=== PATIENT | male | born 1945 | race Caucasian/White ===

== ENCOUNTER → 2017-07-05 14:12 | Outpatient (CLI) | payer MEDICARE, OTHER | END | disposition home or self-care (01) | LOC: D.LAB 14:12 | DX: N40.0 Benign prostatic hyperplasia without lower urinary tract symptoms (principal); Z12.5 Encounter for screening for malignant neoplasm of prostate ==

== ENCOUNTER → 2017-09-19 12:52 | Outpatient (CLI) | payer MEDICARE, OTHER | END | disposition home or self-care (01) | LOC: D.LABREF 12:52 | DX: T84.52XA Infection and inflammatory reaction due to internal left hip prosthesis, initial encounter (principal) ==

== ENCOUNTER → 2017-09-22 13:40 | Outpatient (CLI) | payer MEDICARE, OTHER ==
[2017-09-22 15:44] LABS: CALC OSMOLALITY 283 mosm/kg (275-300); CALCIUM 8.7 mg/dL (8.5-10.1); CARBON DIOXIDE 26.4 mmol/L (21.0-32.0); CHLORIDE - SERUM 103 mmol/L (98-107); GLUCOSE 105 mg/dL (74-106); POTASSIUM - SERUM 3.7 mmol/L (3.5-5.1); SODIUM 143 mmol/L (136-145); UREA NITROGEN 9 mg/dL (7-18); VANCOMYCIN - TROUGH 23.3 ug/mL (10.0-20.0); eGFR NON AFRICAN AMERICAN 78 mL/min (90-120)
== END | disposition home or self-care (01) ==
LOC: D.LABREF 13:40
PROVIDERS: Orthopaedic Surgery
DX: T84.52XA Infection and inflammatory reaction due to internal left hip prosthesis, initial encounter (principal)

== ENCOUNTER → 2017-09-26 11:16 | Outpatient (CLI) | payer MEDICARE, OTHER | END | disposition home or self-care (01) | LOC: D.LABREF 11:16 | DX: T84.52XA Infection and inflammatory reaction due to internal left hip prosthesis, initial encounter (principal) ==

== ENCOUNTER → 2017-09-30 10:39 | Outpatient (CLI) | payer MEDICARE, OTHER ==
[2017-09-30 11:19] LABS: ANION GAP 11.9 mmol/L (8-16); CALCIUM 8.7 mg/dL (8.5-10.1); CARBON DIOXIDE 29.7 mmol/L (21.0-32.0); CREATININE - SERUM 1.1 mg/dL (0.6-1.3); POTASSIUM - SERUM 4.6 mmol/L (3.5-5.1); VANCOMYCIN - TROUGH 18.4 ug/mL (10.0-20.0)
== END | disposition home or self-care (01) ==
LOC: D.LABREF 10:39
PROVIDERS: Orthopaedic Surgery
DX: T84.54XA Infection and inflammatory reaction due to internal left knee prosthesis, initial encounter (principal); Z51.81 Encounter for therapeutic drug level monitoring; Z79.2 Long term (current) use of antibiotics; I25.10 Atherosclerotic heart disease of native coronary artery without angina pectoris

== ENCOUNTER → 2017-10-03 13:18 | Outpatient (CLI) | payer MEDICARE, OTHER ==
[2017-10-03 20:03] LABS: UREA NITROGEN 11 mg/dL (7-18)
[2017-10-03 20:05] LABS: CALC OSMOLALITY 281 mosm/kg (275-300); CALCIUM 8.6 mg/dL (8.5-10.1); CARBON DIOXIDE 29.2 mmol/L (21.0-32.0); CHLORIDE - SERUM 104 mmol/L (98-107); GLUCOSE 95 mg/dL (74-106); POTASSIUM - SERUM 4.5 mmol/L (3.5-5.1); SODIUM 142 mmol/L (136-145); VANCOMYCIN - TROUGH 18.9 ug/mL (10.0-20.0); eGFR NON AFRICAN AMERICAN 78 mL/min (90-120)
== END | disposition home or self-care (01) ==
LOC: D.LABREF 13:18
PROVIDERS: Orthopaedic Surgery
DX: T84.54XA Infection and inflammatory reaction due to internal left knee prosthesis, initial encounter (principal)

== ENCOUNTER → 2017-10-10 12:46 | Outpatient (CLI) | payer MEDICARE, OTHER ==
[2017-10-10 15:26] LABS: CALC OSMOLALITY 278 mosm/kg (275-300); CALCIUM 8.7 mg/dL (8.5-10.1); CARBON DIOXIDE 31.4 mmol/L (21.0-32.0); CHLORIDE - SERUM 102 mmol/L (98-107); CREATININE - SERUM 0.9 mg/dL (0.6-1.3); GLUCOSE 107 mg/dL (74-106); POTASSIUM - SERUM 4.6 mmol/L (3.5-5.1); SODIUM 139 mmol/L (136-145); UREA NITROGEN 14 mg/dL (7-18); VANCOMYCIN - TROUGH 18.5 ug/mL (10.0-20.0); eGFR NON AFRICAN AMERICAN 88 mL/min (90-120)
== END | disposition home or self-care (01) ==
LOC: D.LABREF 12:46
PROVIDERS: Orthopaedic Surgery
DX: T84.54XA Infection and inflammatory reaction due to internal left knee prosthesis, initial encounter (principal)

== ENCOUNTER → 2017-10-17 12:21 | Outpatient (CLI) | payer MEDICARE, OTHER ==
[2017-10-17 12:45] LABS: CALC OSMOLALITY 286 mosm/kg (275-300); CALCIUM 8.5 mg/dL (8.5-10.1); CARBON DIOXIDE 31.6 mmol/L (21.0-32.0); CHLORIDE - SERUM 106 mmol/L (98-107); CREATININE - SERUM 0.9 mg/dL (0.6-1.3); GLUCOSE 111 mg/dL (74-106); POTASSIUM - SERUM 4.8 mmol/L (3.5-5.1); SODIUM 143 mmol/L (136-145); UREA NITROGEN 14 mg/dL (7-18); VANCOMYCIN - TROUGH 17.3 ug/mL (10.0-20.0); eGFR NON AFRICAN AMERICAN 88 mL/min (90-120)
== END | disposition home or self-care (01) ==
LOC: D.LABREF 12:21
PROVIDERS: Orthopaedic Surgery
DX: T84.54XA Infection and inflammatory reaction due to internal left knee prosthesis, initial encounter (principal)

== ENCOUNTER → 2017-10-24 13:19 | Outpatient (CLI) | payer MEDICARE, OTHER ==
[2017-10-24 19:52] LABS: ANION GAP 9.7 mmol/L (8-16); CALCIUM 8.9 mg/dL (8.5-10.1); CARBON DIOXIDE 31.3 mmol/L (21.0-32.0); CREATININE - SERUM 1.2 mg/dL (0.6-1.3); VANCOMYCIN - TROUGH 18.4 ug/mL (10.0-20.0)
== END | disposition home or self-care (01) ==
LOC: D.LABREF 13:19
PROVIDERS: Orthopaedic Surgery
DX: T84.54XA Infection and inflammatory reaction due to internal left knee prosthesis, initial encounter (principal)

== ENCOUNTER → 2018-10-23 11:37 | Outpatient (CLI) | payer MEDICARE, OTHER | END | disposition home or self-care (01) | LOC: D.LABREF 11:37 → D.LDO 11:37 | DX: M00.9 Pyogenic arthritis, unspecified (principal); Z51.81 Encounter for therapeutic drug level monitoring; Z79.2 Long term (current) use of antibiotics ==

== ENCOUNTER → 2018-10-30 17:30 | Outpatient (CLI) | payer MEDICARE, OTHER ==
[2018-10-30 18:37] LABS: BASOPHILS 0.6 % (0-2); EOSINOPHILS 5.3 % (0-7); HEMOGLOBIN 11.1 g/dL (13.5-17.5); IMMATURE GRANULOCYTES 0.4 % (0-5); LYMPHOCYTES 35.5 % (15-50); MCH 26.1 pg (26.0-34.0); MCV 86.9 fL (80.0-100.0); MEAN PLATELET VOLUME 9.8 fL (7.4-10.4); MONOCYTES 10.2 % (2-11); PLATELET COUNT 232 10x3/uL (130-400); RBC 4.26 10x6/uL (4.20-6.10); WBC 5.3 10x3/uL (4.8-10.8)
[2018-10-30 19:25] LABS: ALBUMIN 2.9 g/dL (3.4-5.0); ALKALINE PHOSPHATASE 100 U/L (46-116); ALT (SGPT) 12 U/L (10-68); BILIRUBIN - TOTAL 0.21 mg/dL (0.2-1.3); CALC OSMOLALITY 279 mosm/kg (275-300); CALCIUM 8.2 mg/dL (8.5-10.1); CARBON DIOXIDE 33.7 mmol/L (21.0-32.0); CHLORIDE - SERUM 99 mmol/L (98-107); GLUCOSE 138 mg/dL (74-106); POTASSIUM - SERUM 4.1 mmol/L (3.5-5.1); SODIUM 139 mmol/L (136-145); UREA NITROGEN 13 mg/dL (7-18); eGFR NON AFRICAN AMERICAN 78 mL/min (90-120)
[2018-10-30 20:51] LABS: ERYTHROCYTE SEDIMENTATION RATE 5 mm/hr (0-20)
== END | disposition home or self-care (01) ==
LOC: D.LABREF 17:30
PROVIDERS: Orthopaedic Surgery
DX: T84.50XA Infection and inflammatory reaction due to unspecified internal joint prosthesis, initial encounter (principal)

== ENCOUNTER → 2018-11-06 14:04 | Outpatient (CLI) | payer MEDICARE, OTHER ==
[2018-11-06 15:07] LABS: BASOPHILS 0.3 % (0-2); EOSINOPHILS 1.2 % (0-7); HEMOGLOBIN 11.9 g/dL (13.5-17.5); IMMATURE GRANULOCYTES 0.2 % (0-5); LYMPHOCYTES 28.4 % (15-50); MCH 26.7 pg (26.0-34.0); MCHC 31.3 g/dL (31.0-37.0); MCV 85.2 fL (80.0-100.0); MEAN PLATELET VOLUME 9.8 fL (7.4-10.4); MONOCYTES 13.4 % (2-11); NEUTROPHILS 56.5 % (40-80); PLATELET COUNT 190 10x3/uL (130-400); RBC 4.46 10x6/uL (4.20-6.10); RDW 14.8 % (11.5-14.5); WBC 6.6 10x3/uL (4.8-10.8)
[2018-11-06 15:35] LABS: ALBUMIN 3.2 g/dL (3.4-5.0); ALKALINE PHOSPHATASE 112 U/L (46-116); ALT (SGPT) 10 U/L (10-68); BILIRUBIN - TOTAL 0.28 mg/dL (0.2-1.3); CALC OSMOLALITY 277 mosm/kg (275-300); CALCIUM 8.7 mg/dL (8.5-10.1); CARBON DIOXIDE 29.2 mmol/L (21.0-32.0); CHLORIDE - SERUM 100 mmol/L (98-107); GLUCOSE 108 mg/dL (74-106); POTASSIUM - SERUM 4.5 mmol/L (3.5-5.1); PROTEIN - SERUM 6.5 g/dL (6.4-8.2); SODIUM 138 mmol/L (136-145); UREA NITROGEN 14 mg/dL (7-18); eGFR NON AFRICAN AMERICAN 78 mL/min (90-120)
[2018-11-06 16:28] LABS: ERYTHROCYTE SEDIMENTATION RATE 9 mm/hr (0-20)
== END | disposition home or self-care (01) ==
LOC: D.LABREF 14:04
PROVIDERS: Orthopaedic Surgery
DX: M00.9 Pyogenic arthritis, unspecified (principal); Z51.81 Encounter for therapeutic drug level monitoring; Z79.2 Long term (current) use of antibiotics; I25.10 Atherosclerotic heart disease of native coronary artery without angina pectoris

== ENCOUNTER → 2018-11-13 14:31 | Outpatient (CLI) | payer MEDICARE, OTHER ==
[2018-11-13 14:53] LABS: BASOPHILS 0.6 % (0-2); EOSINOPHILS 3.9 % (0-7); HEMATOCRIT 39.4 % (42.0-54.0); IMMATURE GRANULOCYTES 0.2 % (0-5); LYMPHOCYTES 42.8 % (15-50); MCH 26.3 pg (26.0-34.0); MCHC 30.5 g/dL (31.0-37.0); MCV 86.2 fL (80.0-100.0); MEAN PLATELET VOLUME 10.4 fL (7.4-10.4); MONOCYTES 13.7 % (2-11); NEUTROPHILS 38.8 % (40-80); PLATELET COUNT 177 10x3/uL (130-400); RBC 4.57 10x6/uL (4.20-6.10); RDW 15.2 % (11.5-14.5); WBC 4.9 10x3/uL (4.8-10.8)
[2018-11-13 15:08] LABS: ALBUMIN 3.3 g/dL (3.4-5.0); ALKALINE PHOSPHATASE 103 U/L (46-116); ALT (SGPT) 15 U/L (10-68); BILIRUBIN - TOTAL 0.22 mg/dL (0.2-1.3); CALC OSMOLALITY 281 mosm/kg (275-300); CALCIUM 8.5 mg/dL (8.5-10.1); CHLORIDE - SERUM 101 mmol/L (98-107); CREATININE - SERUM 0.9 mg/dL (0.6-1.3); GLUCOSE 96 mg/dL (74-106); POTASSIUM - SERUM 5.2 mmol/L (3.5-5.1); PROTEIN - SERUM 6.4 g/dL (6.4-8.2); SODIUM 141 mmol/L (136-145); UREA NITROGEN 14 mg/dL (7-18); eGFR NON AFRICAN AMERICAN 88 mL/min (90-120)
[2018-11-13 15:52] LABS: ERYTHROCYTE SEDIMENTATION RATE 1 mm/hr (0-20)
== END | disposition home or self-care (01) ==
LOC: D.LABREF 14:31
PROVIDERS: Orthopaedic Surgery
DX: T84.84XD Pain due to internal orthopedic prosthetic devices, implants and grafts, subsequent encounter (principal); I25.10 Atherosclerotic heart disease of native coronary artery without angina pectoris; Z51.81 Encounter for therapeutic drug level monitoring; Z79.2 Long term (current) use of antibiotics

== ENCOUNTER → 2018-11-20 18:36 | Outpatient (CLI) | payer MEDICARE, OTHER ==
[2018-11-20 19:57] LABS: HEMATOCRIT 36.9 % (42.0-54.0); HEMOGLOBIN 11.5 g/dL (13.5-17.5); MCH 26.4 pg (26.0-34.0); MCHC 31.2 g/dL (31.0-37.0); MCV 84.8 fL (80.0-100.0); MEAN PLATELET VOLUME 10.2 fL (7.4-10.4); PLATELET COUNT 182 10x3/uL (130-400); RBC 4.35 10x6/uL (4.20-6.10); RDW 14.8 % (11.5-14.5); WBC 6.4 10x3/uL (4.8-10.8)
[2018-11-20 20:14] LABS: ANISOCYTOSIS 1+; EOSINOPHILS 3 % (0-7); LYMPHOCYTES 49 % (15-50); MONOCYTES 10 % (2-11); NEUTROPHILS 38 % (40-80); PLATELET ESTIMATE NORMAL; POIKILOCYTOSIS 1+
[2018-11-20 20:15] LABS: ALBUMIN 3.4 g/dL (3.4-5.0); ANION GAP 14.2 mmol/L (8-16); BILIRUBIN - TOTAL 0.2 mg/dL (0.2-1.3); CALCIUM 8.5 mg/dL (8.5-10.1); CARBON DIOXIDE 28.1 mmol/L (21.0-32.0); CREATININE - SERUM 1.1 mg/dL (0.6-1.3); POTASSIUM - SERUM 4.3 mmol/L (3.5-5.1); PROTEIN - SERUM 7.1 g/dL (6.4-8.2)
[2018-11-20 20:57] LABS: ERYTHROCYTE SEDIMENTATION RATE 0 mm/hr (0-20)
== END | disposition home or self-care (01) ==
LOC: D.LABREF 18:36
PROVIDERS: Internal Medicine Infectious Disease
DX: T84.54XD Infection and inflammatory reaction due to internal left knee prosthesis, subsequent encounter (principal)

== ENCOUNTER → 2018-11-27 15:52 | Outpatient (CLI) | payer MEDICARE, OTHER ==
[2018-11-27 16:48] LABS: BASOPHILS 0.6 % (0-2); EOSINOPHILS 3.3 % (0-7); HEMATOCRIT 39.2 % (42.0-54.0); IMMATURE GRANULOCYTES 0.2 % (0-5); MCH 26.3 pg (26.0-34.0); MCHC 30.6 g/dL (31.0-37.0); MEAN PLATELET VOLUME 10.1 fL (7.4-10.4); MONOCYTES 15.7 % (2-11); NEUTROPHILS 41.2 % (40-80); PLATELET COUNT 160 10x3/uL (130-400); RBC 4.56 10x6/uL (4.20-6.10); RDW 14.8 % (11.5-14.5); WBC 4.9 10x3/uL (4.8-10.8)
[2018-11-27 17:21] LABS: ALBUMIN 3.4 g/dL (3.4-5.0); ALKALINE PHOSPHATASE 123 U/L (46-116); ALT (SGPT) 29 U/L (10-68); BILIRUBIN - TOTAL 0.27 mg/dL (0.2-1.3); CALC OSMOLALITY 279 mosm/kg (275-300); CALCIUM 8.5 mg/dL (8.5-10.1); CARBON DIOXIDE 29.5 mmol/L (21.0-32.0); CHLORIDE - SERUM 102 mmol/L (98-107); CREATININE - SERUM 0.9 mg/dL (0.6-1.3); GLUCOSE 100 mg/dL (74-106); POTASSIUM - SERUM 4.7 mmol/L (3.5-5.1); PROTEIN - SERUM 6.5 g/dL (6.4-8.2); SODIUM 140 mmol/L (136-145); UREA NITROGEN 14 mg/dL (7-18); eGFR NON AFRICAN AMERICAN 88 mL/min (90-120)
[2018-11-27 18:12] LABS: ERYTHROCYTE SEDIMENTATION RATE 3 mm/hr (0-20)
== END | disposition home or self-care (01) ==
LOC: D.LABREF 15:52
PROVIDERS: Internal Medicine Infectious Disease
DX: Z00.00 Encounter for general adult medical examination without abnormal findings (principal)

== ENCOUNTER 2018-12-25 12:18 | Inpatient (IN) | payer MEDICARE, OTHER ==
[~2018-12-25] VITALS: Ht 170.2 cm; Wt 74.1 kg
[2018-12-25] MEDS ORDERED: PROPECIA1 MG (12:32)
[2018-12-25] MEDS ORDERED: BAYER CHEWABLE81 MG (12:32)
[2018-12-25] MEDS ORDERED: NEXIUM20 MG (12:32)
[2018-12-25] MEDS ORDERED: TRAZODONE HCL150 MG (12:32)
[2018-12-25] MEDS ORDERED: FLOMAX0.4 MG (12:32)
[2018-12-25] MEDS ORDERED: MORPHINE S10 MG/5 ML (12:32)
[2018-12-25] MEDS ORDERED: ZANAFLEX4 MG (12:32)
[2018-12-25] MEDS ORDERED: KLONOPIN0.5 MG (12:32)
[2018-12-25] MEDS ORDERED: LIPITOR20 MG (12:32)
[2018-12-25 13:16] LABS: BASOPHILS 0.2 % (0-2); EOSINOPHILS 0.5 % (0-7); HEMATOCRIT 42.7 % (42.0-54.0); HEMOGLOBIN 13.5 g/dL (13.5-17.5); IMMATURE GRANULOCYTES 0.2 % (0-5); LYMPHOCYTES 24.1 % (15-50); MCH 26.9 pg (26.0-34.0); MCHC 31.6 g/dL (31.0-37.0); MCV 85.1 fL (80.0-100.0); MEAN PLATELET VOLUME 9.7 fL (7.4-10.4); MONOCYTES 18.1 % (2-11); NEUTROPHILS 56.9 % (40-80); PLATELET COUNT 146 10x3/uL (130-400); RBC 5.02 10x6/uL (4.20-6.10); RDW 14.9 % (11.5-14.5); WBC 4.2 10x3/uL (4.8-10.8)
[2018-12-25 13:38] LABS: ALBUMIN 3.7 g/dL (3.4-5.0); ALKALINE PHOSPHATASE 95 U/L (46-116); ALT (SGPT) 24 U/L (10-68); BILIRUBIN - TOTAL 0.36 mg/dL (0.2-1.3); CALC OSMOLALITY 277 mosm/kg (275-300); CALCIUM 8.6 mg/dL (8.5-10.1); CARBON DIOXIDE 31.1 mmol/L (21.0-32.0); CHLORIDE - SERUM 101 mmol/L (98-107); CREATININE - SERUM 1.2 mg/dL (0.6-1.3); GLUCOSE 116 mg/dL (74-106); POTASSIUM - SERUM 3.9 mmol/L (3.5-5.1); PROTEIN - SERUM 6.9 g/dL (6.4-8.2); SODIUM 138 mmol/L (136-145); UREA NITROGEN 14 mg/dL (7-18); eGFR NON AFRICAN AMERICAN 63 mL/min (90-120)
[2018-12-25 13:49] LABS: CKMB 0.4 U/L (0.0-3.6); CREATINE KINASE 53 UL (21-232); TROPONIN-I < 0.017 ng/mL (0.000-0.060)
--- NOTE | 2018-12-25 13:50 | NUR ---
URINE SAMPLE COLLECTED AND SENT
[2018-12-25 14:43] LABS: APPEARANCE HAZY (CLEAR); BILIRUBIN NEGATIVE (NEGATIVE); COLOR YELLOW (YELLOW); GLUCOSE NEGATIVE (NEGATIVE); KETONE NEGATIVE (NEGATIVE); NITRITE NEGATIVE (NEGATIVE); PROTEIN TRACE mg/dL (NEGATIVE); SPECIFIC GRAVITY 1.025 (1.005-1.020)
[2018-12-25 14:44] LABS: BACTERIA MODERATE /hpf (NONE SEEN); EPITHELIAL CELLS 0-5 /hpf (0-5); RED CELLS - URINE 0-5 /hpf (0-5); WHITE CELLS - URINE 0-5 /hpf (0-5)
[2018-12-25 14:45] LABS: MUCUS >1+ /lpf (NONE SEEN)
--- NOTE | 2018-12-25 17:51 | MORECARE ---
CASE MANAGEMENT DISCHARGE SUMMARY PATIENT: GAVIOTA BAXTER UNIT: [id number] ADM DATE: 12/25/18 AGE: 73 : 45 SEX: M ROOM/BED: D.2108 AUTHOR: NAYELY LEIVA PHYSICIAN: REFERRING PHYSICIAN: DECLAN CARDOZA MD DATE OF SERVICE: 12/25/18 Discharge Plan Patient Name: GAVIOTA BAXTER Facility: [facility]:[place] : 1945 Planned Disposition: Home Anticipated Discharge Date: 12/30/18 Discharge Date: Expected LOS: 5 Initial Reviewer: [email or web address] Initial Review Date: 12/25/2018 Generated: 12/25/18 6:51 pm DCPIA - Discharge Planning Initial Assessment Updated by [email or web address]: Lacy Gaytan on 12/25/18 5:51 pm * Is the patient Alert and Oriented? Yes * How many steps to enter\exit or inside your home? Two * PCP Dr. Carlson * Pharmacy Home [facility] * Preadmission Environment Home with Family * ADLs Independent * Equipment Cane Rolling Walker * List name and contact numbers for known caregivers / representatives who currently or will assist patient after discharge: Nita Baxter - - [phone] * Verbal permission to speak to the caregivers and representatives has been obtained from the patient. Yes * Community resources currently utilized None * Additional services required to return to the preadmission environment? No * Can the patient safely return to the preadmission environment? Yes * Has this patient been hospitalized within the prior 30 days at any hospital? No Patient Name: GAVIOTA BAXTER Page [phone] at 1751 All edits/amendments must be made on the electronic document DICTATION DATE: 12/25/181750 FISH BAIT PROCESSING SUPERVISOR: LAINEY 12/25/181750 RPT#: [id number] DC DATE: STATUS: ADM IN [facility] [address] [place] [address] END OF REPORT
[2018-12-25 17:57] VITALS: BP 122/75
--- NOTE | 2018-12-25 17:58 | MORECARE ---
CASE MANAGEMENT DISCHARGE SUMMARY PATIENT: GAVIOTA BAXTER UNIT: [id number] ADM DATE: 12/25/18 AGE: 73 : 45 SEX: M ROOM/BED: D.2107 AUTHOR: NAYELY LEIVA PHYSICIAN: REFERRING PHYSICIAN: DECLAN CARDOZA MD DATE OF SERVICE: 12/25/18 Discharge Plan Patient Name: GAVIOTA BAXTER Facility: [facility]:[place] : 1945 Planned Disposition: Home Anticipated Discharge Date: 12/30/18 Discharge Date: Expected LOS: 5 Initial Reviewer: [email or web address] Initial Review Date: 12/25/2018 Generated: 12/25/18 6:58 pm DCP- Discharge Planning Updated by [email or web address]: Lacy Gaytan on 12/25/18 4:[address] Patient Name: GAVIOTA BAXTER Admission Status: ER Accout number: [id number] Admission Date: 12-25-2018 : 1945 Admission Diagnosis: Attending: DECLAN CARDOZA Current LOS: 1 Anticipated DC Date: 12-30-2018 Planned Disposition: Home Primary Insurance: MEDICARE A & B Discharge Planning Comments: CM met with patient and his Nita to complete initial dc planning assessment. CM educated patient and his on the CM role and verbal consent given by patient;s to complete assessment. Nita reports that patient is normally independent with mild dementia. Today she has had to do everything for him and he is confused and unable to answer questions. Patient lives at home with his . At discharge reports that patient will return home with her and she feels this is a safe discharge plan. CM discussed availability of home health, rehab services, and medical equipment. She denied need for community resources at discharge at this time. CM will continue to follow and will assist as needed with dc plans/needs. Solar Pv Installer: Lacy Gaytan RN, [facility] DCPIA - Discharge Planning Initial Assessment Updated by [email or web address]: Lacy Gaytan on 12/25/18 5:51 pm * Is the patient Alert and Oriented? Yes * How many steps to enter\exit or inside your home? Two * PCP Dr. Carlson * Pharmacy Home [facility] * Preadmission Environment Home with Family * ADLs Independent * Equipment Cane Rolling Walker * List name and contact numbers for known caregivers / representatives who currently or will assist patient after discharge: Nita Baxter - - [phone] * Verbal permission to speak to the caregivers and representatives has been obtained from the patient. Yes * Community resources currently utilized None * Additional services required to return to the preadmission environment? No * Can the patient safely return to the preadmission environment? Yes * Has this patient been hospitalized within the prior 30 days at any hospital? No Last DP export: 12/25/18 4:51 p Patient Name: GAVIOTA BAXTER Page [id number] at 1758 All edits/amendments must be made on the electronic document DICTATION DATE: 12/25/181756 CLINICAL CARE MANAGER: LAINEY 12/25/181756 RPT#: [id number] DC DATE: STATUS: ADM IN [facility] [address] [place] [address] END OF REPORT
--- NOTE | 2018-12-25 18:24 | NUR ---
RECEIVED PT FROM ER ACCOMPANIED BY FAMILY AND HOSPITAL STAFF. PT IS AAO AND UP AD KAYE. LEVAQUIN CURRENTLY INFUSING VIA L.FOR PIV. PT DENIES ANY NEEDS AT THIS TIME. WILL PASS REPORT AND CONTINUE WITH POC.
--- NOTE | 2018-12-25 19:52 | NUR ---
RECEIVED REPORT, WILL ASSUME CARE OF PT DENIES ANY NEEDS AT THIS TIME, BED IS LOW, SRX2, CALL LIGHT IN REACH, WILL CONTINUE PLAN OF CARE
[2018-12-25 21:03] VITALS: BP 139/76
[2018-12-26 00:36] VITALS: Ht 170.2 cm; Wt 74.1 kg
[2018-12-26 01:03] VITALS: BP 102/57
--- NOTE | 2018-12-26 02:57 | NUR ---
LYING IN BED WITH EYES CLOSED, CALL LIGHT IN REACH. WILL CONTINUE WITH PLAN OF CARE.
[2018-12-26 05:37] LABS: BASOPHILS 0.2 % (0-2); EOSINOPHILS 0.2 % (0-7); HEMATOCRIT 38.9 % (42.0-54.0); HEMOGLOBIN 12.3 g/dL (13.5-17.5); LYMPHOCYTES 36.9 % (15-50); MCH 26.6 pg (26.0-34.0); MCHC 31.6 g/dL (31.0-37.0); MCV 84.2 fL (80.0-100.0); MEAN PLATELET VOLUME 9.9 fL (7.4-10.4); MONOCYTES 18.4 % (2-11); NEUTROPHILS 44.3 % (40-80); PLATELET COUNT 146 10x3/uL (130-400); RBC 4.62 10x6/uL (4.20-6.10); RDW 15.1 % (11.5-14.5); WBC 4.5 10x3/uL (4.8-10.8)
[2018-12-26 06:00] LABS: ALBUMIN 3.1 g/dL (3.4-5.0); ANION GAP 11.5 mmol/L (8-16); BILIRUBIN - TOTAL 0.36 mg/dL (0.2-1.3); CALCIUM 8.1 mg/dL (8.5-10.1); CARBON DIOXIDE 30.2 mmol/L (21.0-32.0); CREATININE - SERUM 1.2 mg/dL (0.6-1.3); POTASSIUM - SERUM 3.7 mmol/L (3.5-5.1); PROTEIN - SERUM 6.5 g/dL (6.4-8.2)
[2018-12-26 06:21] VITALS: BP 119/71
--- NOTE | 2018-12-26 07:30 | NUR ---
RECEIVED A/A/OX4. STATES HE HAS SOME PAIN IN LOWER BACK BUT DECLINES PAIN MED AT THIS TIME. NO OTHER REQUESTS. ASSESSMENT COMPLETED. BED IN LOWEST POSITION WITH SIDERAILS UP X 2 AND CALL LIGHT IN REACH. WILOL CONTINUE POC.
[2018-12-26 09:06] VITALS: BP 138/93
--- NOTE | 2018-12-26 09:58 | NUR ---
Nutrition note: Visited with pt and during rounds. Pt happy with meals; requested additional food items which were provided.
[2018-12-26 13:06] VITALS: BP 118/71
[2018-12-26] MEDS ORDERED: TESSALON PERLE100 MG PO (16:01)
[2018-12-26] MEDS ORDERED: MUCINEX600 MG PO (16:01)
[2018-12-26] MEDS ORDERED: LEVAQUIN750 MG PO (16:02)
--- NOTE | 2018-12-26 16:26 | NUR ---
RESTING QUIETLY WITHOUT ANY DISTRESS NOR COMPLAINTS. READ CLEANING ASSOCIATE ASSESSMENT AND I CONCUR WITH IT.
--- NOTE | 2018-12-27 08:30 | MORECARE ---
CASE MANAGEMENT DISCHARGE SUMMARY PATIENT: GAVIOTA BAXTER UNIT: [id number] ADM DATE: 12/25/18 AGE: 73 : 45 SEX: M ROOM/BED: D.2102 AUTHOR: NAYELY LEIVA PHYSICIAN: REFERRING PHYSICIAN: DECLAN CARDOZA MD DATE OF SERVICE: 12/27/18 Discharge Plan Patient Name: GAVIOTA BAXTER Facility: [facility]:[place] : 1945 Planned Disposition: Home Anticipated Discharge Date: 12/26/18 Discharge Date: 12/26/2018 Expected LOS: 1 Initial Reviewer: [email or web address] Initial Review Date: 12/25/2018 Generated: 12/27/18 9:30 am DCP- Discharge Planning Updated by [email or web address]: Lacy Gaytan on 12/25/18 4:[address] Patient Name: GAVIOTA BAXTER Admission Status: ER Accout number: [id number] Admission Date: 12-25-2018 : 1945 Admission Diagnosis: Attending: DECLAN CARDOZA Current LOS: 1 Anticipated DC Date: 12-30-2018 Planned Disposition: Home Primary Insurance: MEDICARE A & B Discharge Planning Comments: CM met with patient and his Nita to complete initial dc planning assessment. CM educated patient and his on the CM role and verbal consent given by patient;s to complete assessment. Nita reports that patient is normally independent with mild dementia. Today she has had to do everything for him and he is confused and unable to answer questions. Patient lives at home with his . At discharge reports that patient will return home with her and she feels this is a safe discharge plan. CM discussed availability of home health, rehab services, and medical equipment. She denied need for community resources at discharge at this time. CM will continue to follow and will assist as needed with dc plans/needs. Spray Gun Repairer: Lacy Gaytan RN, [facility] DCPIA - Discharge Planning Initial Assessment Updated by [id number]: Lacy Gaytan on 12/25/18 5:51 pm * Is the patient Alert and Oriented? Yes * How many steps to enter\exit or inside your home? Two * PCP Dr. Carlson * [facility] * Preadmission Environment Home with Family * ADLs Independent * Equipment Cane Rolling Walker * List name and contact numbers for known caregivers / representatives who currently or will assist patient after discharge: Nita Baxter - - [phone] * Verbal permission to speak to the caregivers and representatives has been obtained from the patient. Yes * Community resources currently utilized None * Additional services required to return to the preadmission environment? No * Can the patient safely return to the preadmission environment? Yes * Has this patient been hospitalized within the prior 30 days at any hospital? No Last DP export: 12/25/18 4:58 p Patient Name: GAVIOTA BAXTER Page [phone] at 0830 All edits/amendments must be made on the electronic document DICTATION DATE: 12/27/18828 FILM CREW MEMBER: LAINEY 12/27/18828 RPT#: [id number] DC DATE:12/26/18 STATUS: DIS IN [facility] [address] [place] [address] END OF REPORT
== END 2018-12-26 18:32 | disposition home or self-care (01) | DRG 177 ==
LOC: D.ER 12:18 → D.EDHOLD 16:01 → D.M2 16:01
PROVIDERS: Emergency Medicine; ADMIT Family Medicine
DX: J15.6 Pneumonia due to other Gram-negative bacteria (principal); G93.41 Metabolic encephalopathy; G72.9 Myopathy, unspecified; Z91.81 History of falling; I25.10 Atherosclerotic heart disease of native coronary artery without angina pectoris; R47.89 Other speech disturbances

== ENCOUNTER 2019-05-29 06:40 | Day surgery (SDC) | payer MEDICARE, OTHER ==
[~2019-05-29] VITALS: Ht 170.2 cm; Wt 76.4 kg
[~2019-05-29 06:40] MED LIST: BAYER CHEWABLE81 MG PO; FLOMAX0.4 MG PO; KLONOPIN0.5 MG PO; LEVAQUIN750 MG PO; LIPITOR20 MG PO; MORPHINE S10 MG/5 ML; MUCINEX600 MG PO; NEXIUM20 MG PO; PROPECIA1 MG PO; TESSALON PERLE100 MG PO; TRAZODONE HCL150 MG PO; ZANAFLEX2 M1 PO; ZANAFLEX4 MG
[2019-05-29 06:59] LABS: HEMATOCRIT 43.5 % (42.0-54.0); HEMOGLOBIN 14.3 g/dL (13.5-17.5); MCH 27.2 pg (26.0-34.0); MCHC 32.9 g/dL (31.0-37.0); MCV 82.9 fL (80.0-100.0); MEAN PLATELET VOLUME 9.5 fL (7.4-10.4); RBC 5.25 10x6/uL (4.20-6.10); RDW 15.1 % (11.5-14.5); WBC 9.1 10x3/uL (4.8-10.8)
[2019-05-29] MEDS ORDERED: MORPHINE IMMEDI15 MG PO (07:52)
[2019-05-29] MEDS ORDERED: REMERON15 MG PO (07:57)
[2019-05-29 08:16] VITALS: BP 130/78; Ht 170.2 cm; Wt 76.4 kg
--- NOTE | 2019-05-29 18:28 | NUR ---
1215 DRESSED, AWAKE, & ALERT. GIVEN DISCHARGE INFORMATION INCLUDING: MED REC, SHEET LISTING NSAIDS TO AVOID, HIGH FIBER SHEET, & [facility] POST ENDOSCOPY D/C INSTRUCTIONS WITH RTC APPT WITH DR. JALLOH & APPT WITH DR. MURRIETA REQUESTED BY DR JALLOH. PT & VOICED UNDERSTANDING. TO PRIVATE CAR PER WHEELCHAIR BY VOLUNTEER. HOME WITH MRS. SOLORIO. AUGIE Bardales
--- NOTE | 2019-06-01 12:25 | HP ---
PATIENT: GAVIOTA BAXTER MEDICAL RECORD: [id number] ACCOUNT: [id number] LOCATION:[place] : [birth year] ADMISSION DATE: 05/29/19 PCP: JOLENE FRANCO MD HISTORY AND PHYSICAL EXAMINATION PRINCIPAL DIAGNOSIS: Low-grade dysplasia of the cecum. HISTORY: The patient has a low-grade dysplasia of the cecum, also ascending colon angiodysplasias, which have bled. I am going to plan for removal of the low-grade dysplasia of the cecum as well as argon plasma coagulation to the angioectasias of the ascending colon. The risks, possible complications and alternatives to the procedure were explained to the patient. He elects to proceed. HOME MEDICATIONS: Please see the nursing list. ALLERGIES: No known drug allergies. PAST MEDICAL AND SURGICAL HISTORY: As described above. PHYSICAL EXAMINATION: GENERAL: The patient does not appear acutely ill. He does not appear chronically ill. VITAL SIGNS: Reviewed. EARS: External ears appear normal. EYES: Extraocular movements are intact. NECK: Trachea is midline. CHEST: No intercostal retractions. PULMONARY: Nonlabored, no stridor. IMPRESSION: 1. Angioectasias of the ascending colon. 2. Low-grade dysplasia of the cecum. PLAN: As described above. TRANSINT:[id number] Voice Confirmation ID: [id number] DOCUMENT ID: [id number] MAVIS JALLOH MD at 1225 CC: JOLENE FRANCO MD, CODY BALLESTEROS and SULMA NORMAN DO [id number] DICTATION DATE: 05/29/19 1014 SILK SCREEN PRINTER MACHINE: 05/29/19 1031 [facility] 05/29/19 [id number] [place] [address]
--- NOTE | 2019-08-01 09:34 | OP ---
PATIENT NAME: GAVIOTA BAXTER MEDICAL RECORD: [id number] :[birth year] LOCATION:D.OPS ADMISSION DATE: SURGEON: MAVIS JALLOH MD DATE OF OPERATION: 05/29/2019 PREOPERATIVE DIAGNOSES: 1. Cecal polyp with low-grade dysplasia. 2. Angioectasias of the ascending colon. POSTOPERATIVE DIAGNOSES: 1. Two sessile polyps, one of the cecum that was a 1.3 cm polyp and the other was a flat polyp that was difficult to see, except with narrow band imaging and it was a 3.5 cm polyp. 2. Secondary 1.0 cm sessile polyp. 3. Left-sided prostate nodule. PROCEDURES: 1. Total colonoscopy to cecum. 2. Polypectomies times 2. 3. Application of one endoscopic clip for hemostasis. SURGEON: Mavis Jalloh MD PRESCHOOL TEACHER AIDE: None. BLOOD LOSS: Minimal. ANESTHESIA: IV sedation. COMPLICATIONS: None. The risks, possible complications and alternatives to the procedure were explained to the patient. He elects to proceed. ENDOSCOPIC COURSE: The patient was conveyed to the operating room electively on 05/29/2019. IV sedation was induced by the anesthesia staff. The patient was placed in the Reynoso position. A digital rectal examination was performed. A left inferior prostate nodule was noted. I contacted Coco who is on the hospital primary care team and informed her of the endoscopic findings. The endoscope was then advanced to the cecum. The prep was adequate. I noted one cecal polyp. It was cold biopsied and that the polypoid base was ablated with the argon plasma outside residential sales professional utilizing the right colon setting in the forced mode. An endoscopic clip was applied for post-procedural hemostasis. There was a secondary polyp, which was flat and large and could only be seen with narrow band imaging. I felt that attempted removal of this polyp would likely result in a cecal perforation. So, this polyp will need to be removed utilizing the right colectomy technique. I slowly withdrew the endoscope. I irrigated and aspirated extensively. I dragged the folds. A secondary polyp was noted and this was removed in its entirety utilizing the hot biopsy forceps polypectomy technique. A retroflexed view was obtained in the rectum. OPERATIVE REPORT [id number] GAVIOTA BAXTER I then unretroflexed the scope and removed it under direct vision. The patient will require a workup of the left inferior prostate nodule and also will need to undergo a laparoscopic right colectomy. TRANSINT:[id number] Voice Confirmation ID: [id number] DOCUMENT ID: [id number] 08/01/2019 Edited per daniel Howell. MAVIS JALLOH MD at 0934 CC: JOLENE FRANCO MD, CODY BALLESTEROS and SULMA NORMAN DO [id number] DICTATION DATE: 05/29/19 1106 SUPPLY MANAGER: 05/29/19 1205 [facility] 05/29/19 [facility] [address] [place] [address]
== END 2019-05-29 12:15 | disposition home or self-care (01) ==
LOC: D.OPS 06:40
PROVIDERS: ATTEND Surgery
DX: D12.0 Benign neoplasm of cecum (principal); K63.5 Polyp of colon; N40.2 Nodular prostate without lower urinary tract symptoms; Z01.812 Encounter for preprocedural laboratory examination

== ENCOUNTER → 2019-06-20 13:24 | Outpatient (CLI) | payer MEDICARE, OTHER ==
[~2019-06-20 13:24] MED LIST changes: +HYDROCODON-ACE1 EA10 PO; +MORPHINE IMMEDI15 MG PO; +REMERON15 MG PO; +STOOL SOFTENER100 M1 PO
== END | disposition home or self-care (01) ==
LOC: D.LAB 13:24
PROVIDERS: ATTEND Urology
DX: N40.1 Benign prostatic hyperplasia with lower urinary tract symptoms (principal); Z12.5 Encounter for screening for malignant neoplasm of prostate

== ENCOUNTER 2019-07-17 05:28 | Day surgery (SDC) | payer MEDICARE, OTHER ==
[2019-07-16 11:17] LABS: HEMATOCRIT 41.5 % (42.0-54.0); HEMOGLOBIN 13.8 g/dL (13.5-17.5); MCH 27.6 pg (26.0-34.0); MCHC 33.3 g/dL (31.0-37.0); MEAN PLATELET VOLUME 9.7 fL (7.4-10.4); RDW 14.6 % (11.5-14.5); WBC 7.8 10x3/uL (4.8-10.8)
[~2019-07-17] VITALS: Ht 170.2 cm; Wt 79.4 kg
[~2019-07-17 05:28] MED LIST changes: -HYDROCODON-ACE1 EA10 PO; -STOOL SOFTENER100 M1 PO
[2019-07-17 06:02] VITALS: BP 120/63; Ht 170.2 cm; Wt 79.4 kg
--- NOTE | 2019-07-17 08:26 | NUR ---
[address] MURRIETA. PROCEDURE FINDINGS DISCUSSED WITH MRS. BAXTER. PT REMAINS DROWSY. Kadie DELVALLE R.N.
--- NOTE | 2019-07-17 09:40 | NUR ---
0915 DRESSED, AWAKE & ALERT. GIVEN D/C INFORMATION INCLUDING: MED REC, RTC APPT., [facility] OPS D/C INSTRUCTIONS & COMPUTER PRINTOUT PROSTATE BIOPSY & CYSTOSCOPY D/C INSTRUCTIONS. PT & VOICED UNDERSTANDING. TO PRIVATE CAR PER WHEELCHAIR BY THIS NURSE. HOME WITH KAY BAXTER. Kadie DELVALLE R.N.
--- NOTE | 2019-07-17 12:28 | OP ---
PATIENT NAME: GAVIOTA BAXTER MEDICAL RECORD: [id number] :[birth year] LOCATION:D.OPS ADMISSION DATE: SURGEON: ROBERT MURRIETA MD DATE OF OPERATION: 07/17/2019 SURGEON: Robert Murrieta MD ANESTHESIA: TIVA by Vladimir Pacheco CRNA. DIAGNOSES: Abnormal digital rectal examination, benign prostatic hypertrophy. PROCEDURE: Cystoscopy, transrectal ultrasound and prostate biopsy. FINDINGS: On cystoscopy, bilateral lateral lobe enlargement. Large quantities of prostatic stones are noted. Single ureteral orifices bilaterally, with no bladder tumors. Transrectal ultrasound shows a 15 gram prostate with extensive quantities of prostatic stones. The highest concentration of prostatic stones are in the left lateral lobe. BLOOD LOSS: None. CLINICAL HISTORY: This is a 73-year-old male, who had a recent colonoscopy by Dr. Chester. Dr. Chester noted firmness on the left lateral lobe of the prostate. He has a cecal polyp noted on endoscopy that will require surgical removal. His PSA on 07/05/2017 was 1.01. His latest PSA on 06/20/2019 was 0.68. He comes today for cystoscopy and prostate biopsy. He is not allergic to any medications. He was given Ancef conservation officer to the OR. DESCRIPTION OF PROCEDURE: The patient was given IV sedation. He was then placed into lithotomy position and prepped and draped. A 17-Maldivian cystoscope with 30-degree lens was used for visualization. Findings are as outlined above. The bladder was then emptied through the cystoscope sheath and then the scope was removed. We then introduced the transrectal ultrasound probe. Prostate size measurements were obtained. The prostate itself was rather small. However, it is jam packed full of stones. Sextant biopsies were then obtained with at least 3 cores from each sextant. Once all the specimens were obtained, the procedure was terminated. I will see the patient in followup next week to review the pathology results with him. TRANSINT:[id number] Voice Confirmation ID: [id number] DOCUMENT ID: [id number] ROBERT MURRIETA MD at 1228 CC: [id number] DICTATION DATE: 07/17/19 08 [place] [facility] END: 07/17/[address] [facility] 07/17/19 [address] [place] [address]
== END 2019-07-17 09:15 | disposition home or self-care (01) ==
LOC: D.OPS 05:28 → D.PAN 07:30 → D.OPS 07:30
PROVIDERS: Anesthesiology; ATTEND Urology
DX: N40.0 Benign prostatic hyperplasia without lower urinary tract symptoms (principal); Z01.812 Encounter for preprocedural laboratory examination; I10 Essential (primary) hypertension

== ENCOUNTER 2019-07-17 05:28 | Inpatient (IN) | payer MEDICARE, OTHER ==
[~2019-07-17] VITALS: Ht 170.2 cm; Wt 74.8 kg
[2019-07-31] MEDS ORDERED: STOOL SOFTENER100 M1 PO (11:32)
[2019-08-01 08:02] LABS: HEMOGLOBIN 13.6 g/dL (13.5-17.5); MCH 27.3 pg (26.0-34.0); MCHC 33.2 g/dL (31.0-37.0); MCV 82.3 fL (80.0-100.0); MEAN PLATELET VOLUME 9.5 fL (7.4-10.4); RBC 4.98 10x6/uL (4.20-6.10); WBC 5.6 10x3/uL (4.8-10.8)
[2019-08-01 08:07] LABS: ANION GAP 11.3 mmol/L (8-16); CALCIUM 8.8 mg/dL (8.5-10.1); CARBON DIOXIDE 31.5 mmol/L (21.0-32.0); CREATININE - SERUM 1.2 mg/dL (0.6-1.3); POTASSIUM - SERUM 3.8 mmol/L (3.5-5.1)
[2019-08-01 08:42] VITALS: BP 122/86; BMI 26.5
--- NOTE | 2019-08-01 11:45 | HP ---
PATIENT: GAVIOTA BAXTER MEDICAL RECORD: [id number] ACCOUNT: [id number] LOCATION:[facility]- : [birth year] ADMISSION DATE: 08/01/19 PCP: JOLENE FRANCO MD HISTORY AND PHYSICAL EXAMINATION PRINCIPAL DIAGNOSES: A flat cecal polyp, which was a 3.5 cm polyp and could not be removed utilizing endoscopic techniques. The patient has had a history of low-grade dysplasia of the cecum. He has ascending colon angioectasias, which have bled in the past. The patient is here for a hand-assisted laparoscopic right colectomy. HOME MEDICATIONS: Please see the nursing list. The patient is not on any blood thinners currently. ALLERGIES: No known drug allergies. PHYSICAL EXAMINATION: GENERAL: The patient does not appear acutely ill. He does not appear chronically ill. VITAL SIGNS: Reviewed. EARS: External ears appear normal. EYES: Extraocular movements are intact. NECK: Trachea is midline. CHEST: No intercostal retractions. PULMONARY: Nonlabored and no stridor. IMPRESSION: 1. Angioectasias of the ascending colon. 2. Low-grade dysplasia of the cecum. 3. A flat polyp, which was 3.5 cm polyp and was best seen with narrow band imaging. TRANSINT:[id number] Voice Confirmation ID: [id number] DOCUMENT ID: [id number] MAVIS JALLOH MD at 1145 CC: [id number] DICTATION DATE: 08/01/19 0939 PROOF INSPECTOR: 08/01/19 1028 ADM IN [id number] [place] [address]
--- NOTE | 2019-08-01 15:07 | NUR ---
PT ARRIVED TO PACU WITH EPIDURAL - PUMP SET TO 8 ML/HR, 4ML BOLUS AVAILABLE WITH 20 MIN LOCKOUT
[2019-08-01 15:34] VITALS: BP 91/54
[2019-08-01 16:12] VITALS: BP 91/54; BMI 25.9
--- NOTE | 2019-08-01 17:48 | NUR ---
REC'D PT FROM SX. EPIDURAL INFUSING. DENIES PAIN. AAOX4. NO S.S OF ACUTE DISTRESS. AT BEDSIDE
--- NOTE | 2019-08-01 18:57 | NUR ---
PT RESTING IN BED. PRBC INFUSING. NO S/S OF ACUTE DISTRESS. CL IN PLACE. AT BEDSIDE.
--- NOTE | 2019-08-01 19:32 | NUR ---
PT RESTING IN BED. CHEST RISING AND FALLING. AT BEDSIDE. NO S/S OF ACUTE DISTRESS. CL IN PLACE.
[2019-08-01 20:52] VITALS: BP 97/51
--- NOTE | 2019-08-01 21:30 | NUR ---
AWAKE,ALERT.NO COMPALITNS VOICED. EPIDURAL IN USE FOR PAIN CONTROL.SITE WITHOUT REDNESS OR EDEMA NOTED. DRESSING TO RIGHT ABD INTACT WITHOUT DRAINAGE NOTED. LAP SITE TO LEFT ABD WITHOUT DRAINAGE NOTED. CL IN REACH. AT BEDSIDE.
[2019-08-02 01:11] VITALS: BP 95/43
--- NOTE | 2019-08-02 04:49 | NUR ---
I have reviewed this patient and I concur with the Shift Assessment completed by the Licensed Practical Nurse today this shift.
[2019-08-02 06:01] VITALS: BP 104/50
--- NOTE | 2019-08-02 08:01 | NUR ---
PT RESTING IN BED. CONFUSED, "NOONE TOLD ME ABOUT MY PAIN BUTTON" EXPLAINED TO PT I GAVE HIM EDUCATION FOLLOWING SX YESTERDAY AND THAT DUE TO THE ANESTHESIA HE MAY NOT RECALL. ORIENTED AND EXPLAINED THE EPIDURAL AND SELF ADMINISTRATION ONLY WITH SUCCESS. NO S/S OF ACUTE DISTRESS. AT BS. CL IN PLACE.
[2019-08-02 08:43] VITALS: BP 102/44
[2019-08-02 13:03] VITALS: Ht 170.2 cm; Wt 74.8 kg
[2019-08-02 13:16] VITALS: BP 97/51
[2019-08-02 15:43] VITALS: BP 156/80
--- NOTE | 2019-08-02 16:24 | OP ---
PATIENT NAME: GAVIOTA BAXTER MEDICAL RECORD: [id number] :45 LOCATION:D.MS [id number] ADMISSION DATE:08/01/19 SURGEON: MAVIS JALLOH MD DATE OF OPERATION: 08/01/2019 PREOPERATIVE DIAGNOSIS: Endoscopically unresectable colon polyp (cecal). POSTOPERATIVE DIAGNOSIS: Endoscopically unresectable colon polyp (cecal). PROCEDURE: Hand-assisted laparoscopic surgery - right hemicolectomy. SURGEON: Mavis Jalloh MD COMMUTATOR V RING ASSEMBLER: None. BLOOD LOSS: Please see the anesthesia sheet. COMPLICATIONS: None. The risks, possible complications, and alternatives to the procedure were explained to the patient. He elects to proceed. Discussion specifically included, but was not limited to, bleeding requiring an emergency reoperation, infection, intestinal injury, stoma formation. OPERATIVE COURSE: The patient was conveyed to the operating room electively on 08/01/2019. General anesthesia was induced by the anesthesia staff. The abdomen was prepped and draped. A small skin jessica was accomplished in the left upper quadrant. A Veress needle was inserted through the skin jessica into the peritoneal cavity. CO2 insufflation was begun. Once a sufficient pneumoperitoneum had been achieved, a 5-mm trocar was inserted through an incision at the umbilicus. Under direct internal vision utilizing a television camera, another 5-mm trocar was inserted this time in the suprapubic area on the right. Another 5-mm trocar was inserted through an incision in the epigastrium. During insertion of the Veress needle and all trocars, there appeared to have been no injury to the bowels, the intraperitoneal or retroperitoneal structures. The patient was then moved left side down. I grasped the right colon. I took down the right white line of Toldt with the laparoscopic EnSeal device. I mobilized the hepatic flexure of the colon as well utilizing the EnSeal device. I chose a position for insertion of the GelPort. This was slightly higher than fpc between the right costal margin at the anterior superior iliac spine. A transverse incision was accomplished. I dissected down to the external oblique muscle. I used a muscle technique. I then the internal oblique muscle as well as transverse abdominis muscle and then entered the peritoneal cavity sharply. An Davis retractor was placed. On top of the Davis retractor, a GelPort was placed. Through the GelPort under laparoscopic guidance, I mobilized more of the right colon. The GelPort top was then removed. I exteriorized the right colon as well as the proximal transverse colon. I chose the proximal extent of my resection to be the distal ileum. A window was created in the mesentery of the distal ileum and I stapled across the ileum with a DARIELA-75 stapler. A window was then created in the proximal transverse colon and I stapled across the transverse colon with a DARIELA-75 stapler. Utilizing Vidtel EnSeal device, I then took down the OPERATIVE REPORT [id number] GAVIOTA BAXTER mesentery between both of these bowel divisions. I swept down the duodenum, which was undamaged during the operation. I swept down the right ureter, which was undamaged during the operation. I completed my ligation and division of the mesentery and then opened up the specimen on the back table. The polyp was contained within the specimen and it was marked with a suture. I then rescrubbed and regowned. I brought the small bowel and the transverse colon into apposition side by side. The antimesenteric borders of both of these structures were sutured together. A small enterotomy and small colotomy were accomplished. Anvils of DARIELA-75 stapler were advanced and then fired. The resulting enterocolonic defect was closed with single firing of the TA-60 stapler. I oversewed this TA-60 staple line with imbricating 3-0 Vicryls. I placed the omentum overlying the staple line and sutured it down gently as an omental patch. I returned the anastomosis to the peritoneal cavity. I irrigated and aspirated. There was no bleeding. The transverse abdominis muscle was closed with a running #1 Vicryl. The internal oblique was closed with a running #1 Vicryl. The external oblique was closed with a running #1 Vicryl. In the right upper quadrant, the subdermis was approximated with interrupted 3-0 Vicryls. The skin was approximated with a running intracuticular 3-0 Vicryl. All of the trocars were removed. The skin at the umbilicus was closed with interrupted 4-0 Vicryl Rapide sutures. The other skin incisions were closed with interrupted intracuticular 3-0 Vicryls. Benzoin and Steri-Strips were applied. The patient was then extubated and conveyed to the post-anesthesia care unit, where he was in a stable condition. TRANSINT:[id number] Voice Confirmation ID: [id number] DOCUMENT ID: [id number] MAVIS JALLOH MD at 1624 CC: [id number] DICTATION DATE: 08/01/191913 ELEMENTARY SCHOOL MUSIC TEACHER: 08/02/19 0409 [facility] [address] [place] [address]
--- NOTE | 2019-08-02 18:16 | NUR ---
PT RESTING IN BED. HOB 30 DEGREES. CHEST RISING AND FALLING. NO S/S OF ACUTE DISTRESS. CL IN PLACE. AT BEDSIDE
[2019-08-02 21:08] VITALS: BP 165/86
--- NOTE | 2019-08-02 22:30 | NUR ---
PT HAD SMALL GREEN DARK SLIMY BM. BOWEL SOUNDS ARE HYPERACTIVE. REPOSITIONED PT. EPIDURAL INFUSING. NO OTHER NEEDS. WILL CONTINUE TO MONITOR.
[2019-08-03 00:30] VITALS: BP 159/77
[2019-08-03 05:04] VITALS: BP 140/68
--- NOTE | 2019-08-03 07:30 | NUR ---
PT RESTING IN BED WITH SPOUSE AT BEDSIDE. NO ACUTE DISTRESS NOTED AT THIS TIME. PT DENIES PAIN AT THIS TIME. EPIDURAL IN PLACE AND IN USE FOR PAIN CONTROL. IV TO RIGHT FOREARM WITH NS @ 100ML/HR INFUSING VIA PUMP. SITE WITHOUT REDNESS OR EDEMA. DRESSING C/D/I TO ABDOMEN. F/C PATENT TO GRAVITY. PT DENIES FURTHER NEEDS AT THIS TIME. CL WITHIN REACH. ENCOURAGED TO CALL WITH NEEDS. CONTINUE POC
[2019-08-03 08:15] VITALS: BP 167/86
[2019-08-03 12:56] VITALS: BP 128/65
--- NOTE | 2019-08-03 14:15 | MORECARE ---
CASE MANAGEMENT DISCHARGE SUMMARY PATIENT: GAVIOTA BAXTER UNIT: [id number] ADM DATE: 08/01/19 AGE: 73 : 45 SEX: M ROOM/BED: D.2239 AUTHOR: NAYELY LEIVA PHYSICIAN: REFERRING PHYSICIAN: MAVIS JALLOH MD DATE OF SERVICE: 08/03/19 Discharge Plan Patient Name: GAVIOTA BAXTER Facility: [facility]:[place] : 1945 Planned Disposition: Home Anticipated Discharge Date: Discharge Date: Expected LOS: Initial Reviewer: [email or web address] Initial Review Date: 08/03/2019 Generated: 08/03/19 3:14 pm Coverage Notice Reviewer: [id number] - Maria Del Rosario Ruiz Notice Issued Date-Time: 08/03/2019 14:09 Notice Type: Patient Choice Letter Notice Delivered To: Family Member Relationship to Patient: Spouse Endoscopy Nurse Name: Nita Delivery Method: HAND - Hand Delivered Margot Days: Prior Verbal Notification: Recipient Understood Notice: Yes Recipient Signature: Yes Med Rec Note Co-signed by Attending: Coverage Notice Comment: SLICK for [facility] if needed Patient Name: GAVIOTA BAXTER Page [phone] at 1415 All edits/amendments must be made on the electronic document DICTATION DATE: 08/03/19 141 RESTAURANT OPERATIONS MANAGER: LAINEY 08/03/19 1414 RPT#: [id number] DC DATE: STATUS: ADM IN [facility] [address] [place] [address] END OF REPORT
--- NOTE | 2019-08-03 14:27 | MORECARE ---
CASE MANAGEMENT DISCHARGE SUMMARY PATIENT: GAVIOTA BAXTER UNIT: [id number] ADM DATE: 08/01/19 AGE: 73 : 45 SEX: M ROOM/BED: D.2239 AUTHOR: NAYELY LEIVA PHYSICIAN: REFERRING PHYSICIAN: MAVIS JALLOH MD DATE OF SERVICE: 08/03/19 Discharge Plan Patient Name: GAVIOTA BAXTER Facility: [facility]:[place] : 1945 Planned Disposition: Home Anticipated Discharge Date: Discharge Date: Expected LOS: Initial Reviewer: [email or web address] Initial Review Date: 08/03/2019 Generated: 08/03/19 3:26 pm Comments DCP- Discharge Planning Updated by [email or web address]: Maria Del Rosario Ruiz on 08/03/19 1:[address] Patient Name: GAVIOTA BAXTER Admission Status: Elective Accout number: [id number] Admission Date: 08-01-2019 : 1945 Admission Diagnosis:BENIGN NEOPLASM OF CECUM Attending: MAVIS JALLOH Current LOS: 2 Anticipated DC Date: Planned Disposition: Home Primary Insurance: MEDICARE A & B CM met with patient to complete initial dc planning assessment. I met with in the patient's room to discuss discharge planning, patient is asleep. Patient lives at home with his . At discharge states plan is to return and feels this is a safe discharge. CM discussed availability of home health, rehab services, and medical equipment. states she would like to use [facility] if needed, SLICK signed. She states she wants to wait for me to get the order, because she's not sure if he will need it yet or not, depending on how he does with ambulation. CM will continue to follow and will assist as needed with dc plans/needs. Discharge Planning Comments: Personal Injury Specialist: Maria Del Rosario Ruiz DCPIA - Discharge Planning Initial Assessment Updated by [email or web address]: Maria Del Rosario Ruiz on 08/03/19 2:14 pm * Is the patient Alert and Oriented? No * How many steps to enter\exit or inside your home? * PCP Dr. Carlson * Pharmacy [facility] * Preadmission Environment Home with Family * ADLs Partial Dependent * Partial ADLs (Assistance needed) Ambulation Medication Management * Equipment Cane Walker * List name and contact numbers for known caregivers / representatives who currently or will assist patient after discharge: Nita Barahona - - [phone] * Verbal permission to speak to the caregivers and representatives has been obtained from the patient. N/A * Community resources currently utilized None * Additional services required to return to the preadmission environment? No * Can the patient safely return to the preadmission environment? Yes * Has this patient been hospitalized within the prior 30 days at any hospital? No Coverage Notice Reviewer: [id number] Devin Ruiz Notice Issued Date-Time: 08/03/2019 14:09 Notice Type: Patient Choice Letter Notice Delivered To: Family Member Relationship to Patient: Spouse Brace Maker Name: Nita Delivery Method: HAND - Hand Delivered Margot Days: Prior Verbal Notification: Recipient Understood Notice: Yes Recipient Signature: Yes Med Rec Note Co-signed by Attending: Coverage Notice Comment: SLICK for [facility] if needed Last DP export: 08/03/19 1:14 p Patient Name: GAVIOTA BAXTER Page [phone] at 1427 All edits/amendments must be made on the electronic document DICTATION DATE: 08/03/191425 BILL CUTTER: LAINEY 08/03/191425 RPT#: [id number] DC DATE: STATUS: ADM IN [facility] [address] [place] [address] END OF REPORT
[2019-08-03 17:07] VITALS: BP 142/82
--- NOTE | 2019-08-03 18:00 | NUR ---
PT F/C D/C'D PER ORDERS. 9ML SALINE REMOVED FROM BALLOON, F/C REMOVED, BULB INTACT. PT JASWANT WELL
[2019-08-03 20:00] VITALS: BP 116/62
[2019-08-04] VITALS: BP 199/98
--- NOTE | 2019-08-04 02:15 | NUR ---
PT C/O INCISIONAL PAIN 06/16. GAVE 1 TAB NORCO-5 PO. PT VOIDED IN URINAL. NO OTHER NEEDS. WILL CONTINUE TO MONITOR.
[2019-08-04 04:00] VITALS: BP 172/102
--- NOTE | 2019-08-04 07:45 | NUR ---
PT RESTING IN BED WITH AT THE BEDSIDE. IV LOCATED TO RIGHT FOREARM RUNNING NS @ 100. NO S/S OF DISTRESS AND DENIES NEES AT THIS TIME. BED LOW, RAILS UP X 2, CALL LIGHT IN REACH, WILL CONT TO MONITOR.
[2019-08-04 09:47] VITALS: BP 187/108
[2019-08-04 13:39] VITALS: BP 137/77
[2019-08-04 17:00] VITALS: BP 143/71
--- NOTE | 2019-08-04 20:40 | NUR ---
PT C/O ABDOMINAL AND BACK PAIN 3/10 AND NOT GETTING ANY SLEEP. GAVE MS IR 15 MG AND KLONIPIN WITH OTHER SCHEDULED MEDS. PT WALKING INDEPENDENTLY AND HAD BM. TOLERATING REGULAR DIET WELL. COMPLETE ASSESSMENT PER FLOW-SHEET. NO OTHER NEEDS. WILL CONTINUE TO MONITOR.
[2019-08-04 20:45] VITALS: BP 135/72
[2019-08-05 00:46] VITALS: BP 112/74
[2019-08-05 05:10] VITALS: BP 113/72
--- NOTE | 2019-08-05 07:10 | NUR ---
RESTING IN BED, EYES CLOSED. RESPIRATIONS EVEN AND UNLABORED. NO C/O PAIN. NO S/S OF ACUTE DISTRESS NOTED. POD #4 RIGHT HOUSE COLECTOMY, INCISION ON RIGHT AND 3 LAP SITES ON ABDOMEN. IV TO RIGHT FOREARM, SL. SITE PATENT WITHOUT REDNESS OR SWELLING. PT DENIES ANY NEEDS AT THIS TIME. CALL LIGHT IN REACH. FAMILY AT BEDSIDE. WILL CONTINUE TO MONITOR.
[2019-08-05 09:36] VITALS: BP 106/70
[2019-08-05] MEDS ORDERED: HYDROCODON-ACE1 EA10 PO (10:09)
--- NOTE | 2019-08-05 11:07 | NUR ---
DISCHARGED PATIENT HOME WITH FAMILY VIA WHEELCHAIR ACCOMPANIED BY STAFF. DISCONTINUED IV, CATHETER TIP INTACT. WENT OVER DISCHARGE INSTRUCTIONS WITH PATIENT, PATIENT VERBALIZED UNDERSTANDING. PATIENT DENIES ANY FURHTER NEEDS.
--- NOTE | 2019-08-06 09:41 | MORECARE ---
CASE MANAGEMENT DISCHARGE SUMMARY PATIENT: GAVIOTA BAXTER UNIT: [id number] ADM DATE: 08/01/19 AGE: 73 : 45 SEX: M ROOM/BED: D.2239 AUTHOR: NAYELY LEIVA PHYSICIAN: REFERRING PHYSICIAN: MAVIS JALLOH MD DATE OF SERVICE: 08/06/19 Discharge Plan Patient Name: GAVIOTA BAXTER Facility: [facility]:[place] : 1945 Planned Disposition: Home Anticipated Discharge Date: Discharge Date: 08/05/2019 Expected LOS: Initial Reviewer: [id number] Initial Review Date: 08/03/2019 Generated: 08/06/19 10:40 am DCP- Discharge Planning Updated by [email or web address]: Maria Del Rosario Ruiz on 08/03/19 1:[address] Patient Name: GAVIOTA BAXTER Admission Status: Elective Accout number: [id number] Admission Date: 08-01-2019 : 1945 Admission Diagnosis:BENIGN NEOPLASM OF CECUM Attending: MAVIS JALLOH Current LOS: 2 Anticipated DC Date: Planned Disposition: Home Primary Insurance: MEDICARE A & B CM met with patient to complete initial dc planning assessment. I met with in the patient's room to discuss discharge planning, patient is asleep. Patient lives at home with his . At discharge states plan is to return and feels this is a safe discharge. CM discussed availability of home health, rehab services, and medical equipment. states she would like to use [facility] if needed, SLICK signed. She states she wants to wait for me to get the order, because she's not sure if he will need it yet or not, depending on how he does with ambulation. CM will continue to follow and will assist as needed with dc plans/needs. Discharge Planning Comments: Administrative Support Assoc: Maria Del Rosario Ruiz DCPIA - Discharge Planning Initial Assessment Updated by [email or web address]: Maria Del Rosario Ruiz on 08/03/19 2:14 pm * Is the patient Alert and Oriented? No * How many steps to enter\exit or inside your home? * PCP Dr. Carlson * Pharmacy [facility] * Preadmission Environment Home with Family * ADLs Partial Dependent * Partial ADLs (Assistance needed) Ambulation Medication Management * Equipment Cane Walker * List name and contact numbers for known caregivers / representatives who currently or will assist patient after discharge: Nita Barahona - - [phone] * Verbal permission to speak to the caregivers and representatives has been obtained from the patient. N/A * Community resources currently utilized None * Additional services required to return to the preadmission environment? No * Can the patient safely return to the preadmission environment? Yes * Has this patient been hospitalized within the prior 30 days at any hospital? No Coverage Notice Reviewer: [id number] Devin Ruiz Notice Issued Date-Time: 08/03/2019 14:09 Notice Type: Patient Choice Letter Notice Delivered To: Family Member Relationship to Patient: Spouse Salesperson Hosiery Name: Nita Delivery Method: HAND - Hand Delivered Margot Days: Prior Verbal Notification: Recipient Understood Notice: Yes Recipient Signature: Yes Med Rec Note Co-signed by Attending: Coverage Notice Comment: SLICK for [facility] if needed Last DP export: 08/03/19 1:27 p Patient Name: GAVIOTA BAXTER Page [phone] at 0941 All edits/amendments must be made on the electronic document DICTATION DATE: 08/06/19939 RADIAL DRILL PRESS OPERATOR: LAINEY 08/06/19939 RPT#: [id number] DC DATE:08/05/19 STATUS: DIS IN [facility] [address] [place] [address] END OF REPORT
--- NOTE | 2019-08-07 09:58 | DS ---
PATIENT:GAVIOTA BAXTER :[birth year] MEDICAL RECORD: [id number] DISCHARGE SUMMARY ADMISSION DATE: 08/01/19 DISCHARGE DATE: 08/05/19 PRINCIPAL DIAGNOSIS: Endoscopically unresectable polyp of the cecum, path pending. PROCEDURE: Hand-assisted laparoscopic surgery - right colectomy. HOSPITAL COURSE: The patient was admitted for surgery. He underwent hand-assisted laparoscopic right hemicolectomy. Initially, the prior path had revealed low-grade dysplasia of the cecum with a 3.5-cm flat polyp. The patient's pain was controlled with epidural anesthesia pump. His bowel function returned. His diet was advanced. He was dismissed home on a narcotic analgesic. He is to see me in the office in 2-3 weeks. At the time of his dismissal, the pathology on the operative specimen was still pending. TRANSINT:[id number] Voice Confirmation ID: [id number] DOCUMENT ID: [id number] MAVIS JALLOH MD at 0958 CC: [id number] DICTATION DATE: 08/06/19 1143 FOLDER SEAMER AUTOMATIC: 08/07/19 0721 DIS IN 08/05/19 [facility] [address] [place] [id number]
== END 2019-08-05 11:17 | disposition home or self-care (01) | DRG 331 ==
LOC: D.SDCHOLD 05:28 → D.MS 08-01 07:33 → D.SDCHOLD 08-01 09:00 → D.MS 08-01 15:12
PROVIDERS: Anesthesiology; ADMIT Surgery; ATTEND Surgery
PROC: 0DTF0ZZ Resection of Right Large Intestine, Open Approach (ICD-10-PCS; principal; 2019-08-01 10:00)
DX: D12.0 Benign neoplasm of cecum (principal); K55.20 Angiodysplasia of colon without hemorrhage; E78.5 Hyperlipidemia, unspecified; I25.10 Atherosclerotic heart disease of native coronary artery without angina pectoris

== ENCOUNTER 2019-11-09 11:49 | Emergency (ER) | payer MEDICARE, OTHER ==
[~2019-11-09] VITALS: Ht 170.2 cm; Wt 75.0 kg
[~2019-11-09 11:49] MED LIST changes: +HYDROCODON-ACE1 EA10 PO; +STOOL SOFTENER100 M1 PO
[2019-11-09 11:58] VITALS: Ht 170.2 cm; Wt 75.0 kg
[2019-11-09 12:58] LABS: BASOPHILS 0.5 % (0-2); EOSINOPHILS 2.7 % (0-7); HEMATOCRIT 36.9 % (42.0-54.0); HEMOGLOBIN 10.8 g/dL (13.5-17.5); IMMATURE GRANULOCYTES 0.3 % (0-5); LYMPHOCYTES 35.6 % (15-50); MCH 24.5 pg (26.0-34.0); MCHC 29.3 g/dL (31.0-37.0); MCV 83.9 fL (80.0-100.0); MEAN PLATELET VOLUME 9.8 fL (7.4-10.4); MONOCYTES 9.9 % (2-11); PLATELET COUNT 154 10x3/uL (130-400); RDW 14.8 % (11.5-14.5); WBC 5.9 10x3/uL (4.8-10.8)
[2019-11-09 13:11] LABS: APTT 28.3 SECONDS (22.8-39.4); INR 1.19 (0.85-1.17); PROTIME 14.6 SECONDS (11.6-15.0)
[2019-11-09 13:15] LABS: CALC OSMOLALITY 281 mosm/kg (275-300); CALCIUM 8.4 mg/dL (8.5-10.1); CARBON DIOXIDE 30.2 mmol/L (21.0-32.0); CHLORIDE - SERUM 104 mmol/L (98-107); CREATININE - SERUM 1.1 mg/dL (0.6-1.3); GLUCOSE 93 mg/dL (74-106); POTASSIUM - SERUM 4.6 mmol/L (3.5-5.1); SODIUM 141 mmol/L (136-145); UREA NITROGEN 14 mg/dL (7-18); eGFR NON AFRICAN AMERICAN 69 mL/min (90-120)
[2019-11-09 13:33] LABS: ALBUMIN 3.5 g/dL (3.4-5.0); ALKALINE PHOSPHATASE 72 U/L (46-116); ALT (SGPT) 25 U/L (10-68); BILIRUBIN - TOTAL 0.38 mg/dL (0.2-1.3); CKMB 0.2 U/L (0.0-3.6); CREATINE KINASE 127 UL (21-232); MAGNESIUM - SERUM 2.2 mg/dL (1.8-2.4); PROTEIN - SERUM 6.5 g/dL (6.4-8.2); THYROID STIMULATING HORMONE 2.44 uIU/mL (0.36-3.74)
[2019-11-09 13:35] LABS: TROPONIN-I < 0.017 ng/mL (0.000-0.060)
[2019-11-09 16:37] LABS: APPEARANCE CLEAR (CLEAR); BILIRUBIN NEGATIVE (NEGATIVE); COLOR YELLOW (YELLOW); GLUCOSE NEGATIVE (NEGATIVE); KETONE NEGATIVE (NEGATIVE); NITRITE NEGATIVE (NEGATIVE); PROTEIN NEGATIVE (NEGATIVE); UROBILINOGEN NORMAL (NORMAL)
[2019-11-09 16:54] LABS: UDS - AMPHET NEGATIVE QUAL (NEGATIVE); UDS - BARB NEGATIVE QUAL (NEGATIVE); UDS - BENZO NEGATIVE QUAL (NEGATIVE); UDS - COCAINE NEGATIVE QUAL (NEGATIVE); UDS - OPIATE NEGATIVE QUAL (NEGATIVE); UDS - PCP NEGATIVE QUAL (NEGATIVE); UDS - THC NEGATIVE QUAL (NEGATIVE)
[2019-11-09 17:35] VITALS: BP 107/61
== END 2019-11-09 17:36 | disposition home or self-care (01) ==
LOC: D.ER 11:49
PROVIDERS: Family Medicine
DX: R41.0 Disorientation, unspecified (principal); Z86.73 Personal history of transient ischemic attack (TIA), and cerebral infarction without residual deficits; I25.10 Atherosclerotic heart disease of native coronary artery without angina pectoris; K21.9 Gastro-esophageal reflux disease without esophagitis; F11.21 Opioid dependence, in remission

== ENCOUNTER → 2020-04-02 08:23 | Outpatient (CLI) | payer MEDICARE, OTHER ==
[2019-11-09 11:58] VITALS: BMI 25.9
== END | disposition home or self-care (01) ==
LOC: D.HCCARDIO 04-01 09:00
PROVIDERS: ATTEND Internal Medicine Cardiovascular Disease
DX: I25.10 Atherosclerotic heart disease of native coronary artery without angina pectoris (principal)

== ENCOUNTER 2020-04-14 07:39 | Outpatient (CLI) | payer MEDICARE, OTHER ==
[~2020-04-14] VITALS: Ht 170.2 cm; Wt 80.2 kg
--- NOTE | ~2020-04-14 | HEMODYNAMI ---
PATIENT:GAVIOTA BAXTER MEDICAL RECORD: [id number] : 45 LOCATION:[facility] ADMISSION DATE: 04/14/20 Generatedon:04/14/202010:09 Patient name: GAVIOTA BAXTER Patient #: [id number] S SN: [id number] : 1945 Date of study: 04/14/2020 Page: Of Hemodynamic Procedure Report Patient Data Patient Demographics Procedure consent was obtained First Name: GAVIOTA Gender: Male Last Name: SAHIL : 1945 Middle Initial: D Age: 74 year(s) Patient #: [id number] Race: SSN: [id number] Additional ID: [id number] Contact details [address]: [address] [place] [address] State: [place] City: [place] Zip code: [address] Past Medical History Performed procedures and imaging results Date Procedure Procedure Results Comments 04/02/2020 Stress testing Positive->Intermediate with SPECT MPI risk Allergies: No known allergies Admission Admission Data Admission Date: 04/14/2020 Admission Time: 7:39 Arrival Date: 04/14/2020 Arrival Time: 0:00 Admit Source: Other Insurance Payor: Medicare [facility] #: [id number] Height (in.): 67 BSA: 1.92 (m2) Height (cm.): 170.18 BMI: 27.69 (kg/m2) Weight (lbs.): 176.77 Weight (kg.): 80.18 Lab Results Lab Result Date: 04/14/2020 Lab Result Time: 0:00 Biochemistry Name Units Result Min Max BUN mg/dl 15 --(--*-)-- 7 18 Creatinine mg/dl 1.2 --(---*)-- 0.6 1.3 eGFR ml/min 63 *-(----)-- 90 120 NONAFRICAN CBC Name Units Result Min Max Hematocrit % 40.9 -*(----)-- 42 54 Hemoglobin g/dl 12.2 *-(----)-- 13.5 17.5 Procedure Procedure Types Cath Procedure Diagnostic Procedure [facility] w/Coronaries Sedation Charges Moderate Sedation up to 15 minutes Procedure Description Procedure Date Procedure Date: 04/14/2020 Procedure Start Time: 9:57 Procedure End Time: 10:08 Procedure Staff Name Function Ryan Silva MD Performing Physician Marlen Boyer RT Monitor Leeanne Jeronimo RT Scrub Osmar Lynn RN Nurse Procedure Data Cath Procedure Fluoroscopy Diagnostic fluoroscopy Total fluoroscopy Time: 3.1 time: 3.1 min min Diagnostic fluoroscopy Total fluoroscopy dose: 379 dose: 379 mGy mGy Contrast Material Contrast Material Type Amount (ml) Isovue 370 48 Entry Location Entry Primary Successful Side Size Upsize Upsize Entry Closure Monroy ccessful Closure Location (Fr) 1 (Fr) 2 (Fr) Remarks Device Remarks Radial Right 6 Fr Mechanical artery Short Compression Estimated blood loss: 5 ml Diagnostic catheters Device Type Used For End Catheter Placement DIAGNOSTIC Tiffin 110cm 5 Procedure Fr catheter ([id number]) DIAGNOSTIC JL 4.0 5Fr Procedure catheter ([id number]) Procedure Complications No complications Procedure Medications Medication Administration Route Dosage Oxygen etCO2 Nasal cannula 2 l/min Lidocaine 2% added to field 20 Heparin Flush Bag added to field 2 bags (1000units/500ml NS) 0.9% NaCl I.V. 100 ml/hr Versed I.V. 1 mg Fentanyl I.V. 50 mcg Radial Cocktail I.A. 1 syringe (Verapamil 2mg/Nitro 400mcg/Heparin 1500units) Versed I.V. 1 mg Fentanyl I.V. 50 mcg Versed I.V. 1 mg Solumedrol I.V. 125 mg Hemodynamics Rest BSA: 1.92 (m2) HGB: 12.2 (g/dl) O2 Consumption: Estimated: 209.86 (ml/min) O2 Co nsumption indexed: Estimated:109.3 (ml/min/m) Heart Rate: 55 (bpm) Pressure Samples Time Site Value (mmHg) Purpose Heart Use Rate(bpm) 9:59 LV 83/6,-4 Snapshot 59 10:00 AO 71/48(59) Pullback 68 10:00 LV 64/-1,12 Pullback 68 Gradients Valve Time Site 1 Site 2 Mean SEP/DFP Peak To Heart Use (mmHg) (sec/min) Peak Rate (mmHg) (bpm) Aortic 10:00 LV AO 0 68 64/-1,12 71/48(59) Calculations Valve P-P Mean Valve Index Valve Source Name Gradient Area Flow (cm2) Aortic 0 0 Snapshots Pre Cath Intra NCS Post Cath Vital Signs Time Heart Resp SPO2 etCO2 NIBP (mmHg) Rhythm Pain Sedation Rate (ipm) (%) (mmHg) Status Level (bpm) 9:48:02 56 15 100 39.2 148/86(112) NSR 0 (11) 10(A) , No pain 9:52:20 56 16 99 43 134/86(101) NSR 0 (11) 10(A) , No pain 9:56:35 54 15 99 16.2 120/77(91) NSR 0 (11) 9(A) , No pain 10:00:48 62 14 99 42.9 88/54(70) NSR 0 (11) 9(A) , No pain 10:05:45 56 14 97 45.9 110/64(97) NSR 0 (11) 10(A) , No pain Medications Time Medication Route Dose Verified Delivered Reason Notes Effectiveness by by 9:46:05 Oxygen etCO2 2 l/min Ryan Prasad used for Nasal St Rahul Lynn RN procedure cannula 9:46:13 Lidocaine 2% added 20ml Ryan Davis for local to vial [facility] anesthetic field MD KNOWLES 9:46:19 Heparin Flush added 2 bags Ryan Davis used for Bag to [facility] procedure (1000units/500ml field MD KNOWLES NS) 9:46:28 0.9% NaCl I.V. 100 Ryan Prasad Per ml/hr St Rahul Lynn RN physician 9:50:41 Versed I.V. 1 mg Ryan Prasad for sedation St Rahul Lynn RN, MD 9:50:46 Fentanyl I.V. 50 mcg Ryan Prasad for sedation St Rahul Lynn RN, MD 9:56:01 Fentanyl I.V. 50 mcg Ryan Prasad for sedation St Rahul Lynn RN, MD 9:56:57 Versed I.V. 1 mg Ryan Prasad for sedation St Rahul Lynn RN, MD 9:58:53 Radial Cocktail I.A. 1 Ryan Davis for (Verapamil syringe [facility] vasodilation 2mg/Nitro MD KNOWLES 400mcg/Heparin 1500units) 10:01:20 Versed I.V. 1 mg Ryan Prasad for sedation St Rahul Lynn RN, MD 10:06:43 Solumedrol I.V. 125 mg Ryan Prasad Per for St Rahul Lynn RN physician iftikhar KNOWLES rt chest pain with deep breath. Procedure Log Time Note 9::24 Informed consent obtained and on chart 9:26:39 Diagnostic Cath Status : Elective 9:27:00 Admit Source: Other 9:27:05 ACC Patient presents with Stable Angina CCS Anginal Class 2--Slight limitation of ordinary activity. 9:27:09 Procedure Status Elective Heart Cath (OP). 9:27:12 Osmar Lynn RN sent for patient. Start room use. 9:27:17 Time tracking: Regular hours (M-F 7:00 - 5:00) 9:27:23 Plan of Care:Hemodynamics will remain stable., Cardiac rhythm will remain stable., Comfort level will be maintained., Respiratory function will remain adequate., Patient/ family verbilizes understanding of procedure., Procedure tolerated without complication., Recovers from procedure without complications.. 9:27:30 Patient NPO since Midnight. 9:27:36 Alarms reviewed by R. N. 9:27:37 Alarms reviewed by R. N. 9:27:38 Sharps counted by scrub and verified by R.N. 9:28:27 Stress Test: yes; abnormal INFERIOR 9:28:57 Patient allergic to No known allergies 9:29:24 Lab Result : eGFR NONAFRICAN 63 ml/min 9:29:24 Lab Result : Hemoglobin 12.2 g/dl 9:29:24 Lab Result : BUN 15 mg/dl 9:29:24 Lab Result : Creatinine 1.2 mg/dl 9:29:24 Lab Result : Hematocrit 40.9 % 9:29:30 Arrival Date: 04/14/2020 12:00:00 AM 9:29:33 Patient Height : 67 inches 9:29:38 Patient Weight : 176.77 lbs 9:29:49 Insurance Payor : Medicare 9:33:18 Patient received from Pre/Post Procedure Room to CCL 1 Alert and oriented. Tansferred to table in Supine position. 9:33:20 Warm blankets applied, and alma hugger turned on for patient comfort. 9:33:20 Correct patient and procedure confirmed by team. 9:33:21 ECG and BP/O2 sat monitors applied to patient. 9:45:53 Vital chart was started 9:46:02 Pre-procedure instructions explained to patient. 9:46:03 Pre-op teaching completed and patient verbalized understanding. 9:46:05 Oxygen 2 l/min etCO2 Nasal cannula was administered by Osmar Lynn RN; used for procedure; Verbal order read back and verified. 9:46:05 Family in waiting room. 9:46:07 Is the patient allergic to Iodine/contrast media? No. 9:46:11 Was the patient premedicated? Yes 9:46:13 Lidocaine 2% 20ml vial added to field was administered by Ryan Silva MD; for local anesthetic; Verbal order read back and verified. 9:46:13 Is patient on blood thinner?Yes 9:46:19 Heparin Flush Bag (1000units/500ml NS) 2 bags added to field was administered by Ryan Silva MD; used for procedure; Verbal order read back and verified. 9:46:19 ACC The patient was administered the following blood thiners within the last 24 hours: ACCAspirin 9:46:21 Patient diabetic? No. 9:46:23 If diabetic: On Metformin? N/A 9:46:24 ----Pre-sedation anethsthesia assessment.---- 9:46:27 Previous problem with sedation/anesthesia? No ? 9:46:28 0.9% NaCl 100 ml/hr I.V. was administered by Osmar Lynn RN; Per physician; Verbal order read back and verified. 9:46:29 Snore? Yes 9:46:31 Sleep apnea? Unknown 9:46:32 Deviated septum? No 9:46:33 Opens mouth fully? Yes 9:46:34 Sticks out tongue? Yes 9:46:37 Airway obstruction? No ? 9:46:43 Dentures? Yes IN TIGHT 9:46:48 Modified Michael's test Ulnar < 7 seconds 9:46:51 Patient pain scale 0/10 ?. 9:46:57 IV patent on arrival in left antecubital with 0.9% NaCl at [facility]. 9:47:02 Lab results completed and on chart. 9:47:07 Right Radial & Right Groin area was prepped with chlora-prep and draped in sterile fashion 9:47:13 Pre procedure: right dorsailis pedis pulse 2+ Normal; easily identifiable; not easily obliterated 9:47:20 Use device set Radial Dx or PCI 9:47:22 ACIST Syringe (55968) opened to sterile field. 9:47:22 Medline Cath Pack ([id number]) opened to sterile field. 9:47:23 Bag Decanter (2002) opened to sterile field. 9:47:24 ACIST Hand Control (48593) opened to sterile field. 9:47:24 ACIST Manifold (36402) opened to sterile field. 9:47:28 MBrace Wrist Support ([id number]) opened to sterile field. 9:47:31 EMERALD Guide Wire (815-435) opened to sterile field. 9:47:32 SHEATH 6FR RAIN (3053043) opened to sterile field. 9:47:37 Baseline sample Acquired. 9:47:38 Full Disclosure recording started 9:47:42 Rhythm: sinus bradycardia 9:47:52 H&P Date Dictated: 04/14/2020 New H&P dictated by physician.. 9:47:56 --------ALL STOP TIME OUT------ 9:47:56 Final Timeout: patient, procedure, and site verified with staff and physician. All members of the team are in agreement. 9:47:57 Final Timeout: patient, procedure, and site verified with staff and physician. All members of the team are in agreement. 9:48:00 Right Radial & Right Groin site verified by team. 9:48:04 Fire Safety Assessment: A--An alcohol-based skin anteseptic being used preoperatively., C--Open oxygen or nitrous oxide is being used., D--An ESU, laser, or fiber-optic light is being used. 9:48:11 Physical assessment completed. ASA score P 2 - A patient with mild systemic disease as per Ryan Silva MD. 9:48:14 2) 60-89 Mildly reduced kidney function, and other findings (as for stage 1) point to kidney disease. 9:48:18 Maximum allowable contrast dose (3.7 X eGFR X 0.75)175 ml. 9:48:22 Sedation plan: IV Moderate Sedation Medication:Versed, Fentanyl 9:50:41 Versed 1 mg I.V. was administered by Osmar Lynn RN; for sedation; Verbal order read back and verified. 9:50:46 Fentanyl 50 mcg I.V. was administered by Osmar Lynn RN; for sedation; Verbal order read back and verified. 9:56:01 Fentanyl 50 mcg I.V. was administered by Osmar Lynn RN; for sedation; Verbal order read back and verified. 9:56:57 Versed 1 mg I.V. was administered by Osmar Lynn RN; for sedation; Verbal order read back and verified. 9:57:17 Procedure started. 9:57:23 Local anesthetic to left radial artery with Lidocaine 2% by Ryan Silva MD.INITIAL ACCESS ONLY 9:57:52 A 6 Fr Short sheath was inserted into the Right Radial artery 9:58:53 Radial Cocktail (Verapamil 2mg/Nitro 400mcg/Heparin 1500units) 1 syringe I.A. was administered by Ryan Silva MD; for vasodilation; Verbal order read back and verified. 9:58:57 A DIAGNOSTIC Tiffin 110cm 5 Fr catheter (029743) was advanced over the wire and used for Procedure. 9:59:22 LV gram done using BUSTAMANTE 9:59:25 Injector settings: Ml/sec: 5, Volume: 15, 9:59:49 LV hemodynamics recorded. 10:00:00 EF : 55 % 10:00:15 RCA angiography performed. 10:00:19 Injector settings: Ml/sec: 3, Volume: 6, 10:01:20 Versed 1 mg I.V. was administered by Osmar Lynn RN; for sedation; Verbal order read back and verified. 10:02:16 Catheter exchanged over wire. 10:02:42 A DIAGNOSTIC JL 4.0 5Fr catheter ([id number]) was advanced over the wire and used for Procedure. 10:03:36 LCA angiography performed. 10:03:39 Injector settings: Ml/sec: 3, Volume: 6, 10:04:12 ACCDominant side:Right 10:04:49 Catheter removed. 10:05:00 ZEPHYR REGULAR TR BAND (912333) opened to sterile field. 10:05:11 Sheath removed intact; hemostasis achieved with Mechanical Compression to the Right Radial artery. 10:05:14 Procedure ended.(Physican Out) 10:05:23 Fluoroscopy time 03.10 minutes. 10:05:38 Fluoroscopy dose: 379 mGy 10:05:38 Flurop Dose total: 379 10:05:46 Dose Area Product 00534 mGy/cm. 10:05:50 Contrast amount:Isovue 370 48ml. 10:05:53 Maximum allowable dose exceeded? No. 10:05:54 Sharps counted by scrub and verified by R.N. 10:05:59 [place] band inflated with 10cc of air. 10:06:03 Post Procedure Pulses reassessed and unchanged 10:06:06 Post procedure: right dorsailis pedis pulse 2+ Normal; easily identifiable; not easily obliterated. 10:06:09 Post-procedure physical assessment completed. ASA score P 2 - A patient with mild systemic disease as per Ryan Silva MD. 10:06:15 Post procedure rhythm: sinus rhythm 10:06:18 Estimated blood loss: 5 ml 10:06:19 Post procedure instruction explained to patient.Patient verbalizes understanding. 10:06:20 Patient needs reinforcement of post procedure teaching. 10:06:36 Procedure type changed to Cath procedure, Diagnostic procedure, LHC, C w/Coronaries, Sedation Charges, Moderate Sedation up to 15 minutes 10:06:43 Solumedrol 125 mg I.V. was administered by Osmar Lynn RN; Per physician; for reproducable rt chest pain with deep breath. Verbal order read back and verified. 10:07:32 Procedure and supply charges have been captured, reviewed, submitted and are correct. 10:07:36 Procedure Complication : No complications 10:07:39 [facility] Findings: mild to moderate CAD (<70%) 10:07:42 Operative report dictated upon procedure completion. 10:07:43 See physician's report for complete and final results. 10:07:45 Report given to Pre/Post Procedure Room. 10:07:48 Patient transfered to Pre/Post Procedure Room with Stretcher. 10:08:19 Vital chart was stopped 10:08:21 Procedure ended. 10:08:21 Full Disclosure recording stopped 10:09:12 End room use (Document Last) 10:09:23 End room use (Document Last) 10:09:41 End room use (Document Last) Device Usage Item Name Manufacture Quantity Catalog Hospital Part Current Minima l Lot# / Number Charge Number Stock Stock Serial# Code ACIST Acist 1 73553 822276 [id number] [id number] 20 Syringe Medical (73175) Systems Inc Medline Medline 1 [id number] 737385 73116 470227 5 Cath Pack ([id number]) Bag Microtek 1 526367 79388 104263 5 Decanter Medical Inc. () ACIST Hand Acist 1 95235 804107 955602 747427 5 Control Medical (52800) Systems Inc ACIST Acist 1 61858 613624 748881 122725 5 Manifold Medical (24321) Systems Inc MBrace Advanced 1 140-0250-00 181575 62928 400732 5 Wrist Vascular Support Dynamics ([id number]) EMERALD Cardinal 1 502-455 212982 804625 922018 5 Guide Wire Health (502455) SHEATH 6FR Cardinal 1 [id number] 546620 0696489 638134 5 [facility] Health (9626386) DIAGNOSTIC Terumo 1 405013 952881 838362 695883 5 Tiffin 110cm 5 Fr catheter (340122) DIAGNOSTIC Cardinal 1 004144G 061729 398263 078648 10 JL 4.0 5Fr Health catheter (754824Y) ZEPHYR Cardinal 1 711577 508767 1873849 302551 5 REGULAR TR Health BAND (971169) Signature Audit [place] Stage Time Signature Unsigned Intra-Procedure 04/14/2020 Marlen Boyer 10:09:23 AM RT(R) Intra-Procedure 04/14/2020 Osmar Lynn RN 10:09:41 AM Intra-Procedure 04/14/2020 Ryan Morales 10:09:54 AM Rahul KNOWLES [place] [address] [place] [address]
[2020-04-14] MEDS ORDERED: ZOLOFT25 MG PO (08:06)
[2020-04-14] MEDS ORDERED: BUTRANS1 EAC4 TRANSDERM (08:08)
[2020-04-14 08:11] VITALS: BP 158/71; Ht 170.2 cm; Wt 80.2 kg
[2020-04-14 08:24] LABS: BASOPHILS 0.8 % (0-2); EOSINOPHILS 4.6 % (0-7); HEMATOCRIT 40.9 % (42.0-54.0); HEMOGLOBIN 12.2 g/dL (13.5-17.5); IMMATURE GRANULOCYTES 0.2 % (0-5); LYMPHOCYTES 44.7 % (15-50); MCH 24.5 pg (26.0-34.0); MCHC 29.8 g/dL (31.0-37.0); MCV 82.1 fL (80.0-100.0); MEAN PLATELET VOLUME 9.3 fL (7.4-10.4); MONOCYTES 12.9 % (2-11); NEUTROPHILS 36.8 % (40-80); PLATELET COUNT 174 10x3/uL (130-400); RBC 4.98 10x6/uL (4.20-6.10); RDW 16.1 % (11.5-14.5); WBC 6.4 10x3/uL (4.8-10.8)
[2020-04-14 08:37] LABS: ANION GAP 9.3 mmol/L (8-16); CALCIUM 8.6 mg/dL (8.5-10.1); CARBON DIOXIDE 29.9 mmol/L (21.0-32.0); CHOL - HDL RATIO 2.5 ratio (2.3-4.9); CREATININE - SERUM 1.2 mg/dL (0.6-1.3); LDL-HDL RATIO 1.2 ratio (1.5-3.5); POTASSIUM - SERUM 4.2 mmol/L (3.5-5.1)
--- NOTE | 2020-04-14 10:25 | NUR ---
PT REC'D TO ROOM 5 VIA STRETCHER FROM SOCIAL WORK MANAGER. MONITORS ESTAB. PT DROWSY, AT BS. SEE CONTINUOUS WAVE OPERATOR. ALARMS ON AND C/L IN REACH.
--- NOTE | 2020-04-14 10:40 | NUR ---
R WRIST SITE C/D/I, NO S/S BLEEDING OR HEMATOMA. B/P 147/81 HR 50. PT RESTING QUIETLY, AT BS. ALARMS ON AND C/L IN REACH.
--- NOTE | 2020-04-14 11:10 | NUR ---
R WRIST SITE C/D/I, NO S/S BLEEDING OR SWELLING. HAND WARM, PULSES PALP. VSS. PT RESTING QUIETLY, VSS. ALARMS ON AND C/L IN REACH.
--- NOTE | 2020-04-14 11:25 | NUR ---
2 cc AIR REMOVED FROM Z BAND. NO S/S BLEEDING. PT DENIES NEEDS. VSS.
--- NOTE | 2020-04-14 11:40 | NUR ---
TOTAL 5 CC AIR REMOVED FROM Z BAND, NO S/S BLEEDING OR SWELLING. PT RESTING, REFUSED SANDWICH AT THIS TIME..
--- NOTE | 2020-04-14 11:50 | NUR ---
ALL AIR REMOVED FROM Z BAND, NO S/S BLEEDING OR SWELLING..VSS.
--- NOTE | 2020-04-14 12:20 | NUR ---
R Z BAND REMOVED, DSG APPLIED. R HAND WARM WITH BRISK CAP REFILL. PIV D/C'D INTACT, DSG APPLIED AND PT ALLOWED UP TO GET DRESSED AND GO TO BR INDEPENDENTLY.
--- NOTE | 2020-04-14 12:30 | NUR ---
ALL D/C INSTRUCTIONS REVIEWED WITH PT AND , INCLUDING RESTRICTIONS, MEDICATIONS AND F/U APPT.
--- NOTE | 2020-04-14 12:35 | NUR ---
PT D/C'D TO PRIVATE VEHICLE WITH . PT HAS ALL PAPERWORK AND BELONGINGS.
--- NOTE | 2020-04-15 13:51 | OP ---
PATIENT NAME: GAVIOTA BAXTER MEDICAL RECORD: [id number] :45 LOCATION:[facility] ADMISSION DATE: SURGEON: IMER GUEVARA MD DATE OF OPERATION: 04/14/2020 PROCEDURE: Left heart catheterization, selective coronary angiography, right radial approach. CATHETERS: Radial sheath, [place] catheter. The procedure was well tolerated. The patient returned to the wright, sheath removed. ExoSeal device placed. FINDINGS: Left ventriculography in 30-degree BUSTAMANTE view; normal wall motion. Normal systolic function. CORONARY ANATOMY: LEFT MAIN: Left main is free of disease. LAD: Has luminal irregularities, no flow obstructive stenosis. CIRCUMFLEX: Small circumflex free of disease. RIGHT CORONARY ARTERY: Large, dominant. Previous stenting is widely patent. No progression of [place] disease. IMPRESSION: Continue medical management. TRANSINT:[id number] Voice Confirmation ID: [id number] DOCUMENT ID: [id number] IMER GUEVARA MD at 1351 CC: [id number] DICTATION DATE: 04/14/20 1033 PLISSE MACHINE OPERATOR: 04/14/20 2125 DEP CLI 04/14/20 [place] [id number] [place] [id number]
--- NOTE | 2020-04-15 13:51 | HP ---
PATIENT: GAVIOTA BAXTER MEDICAL RECORD: [id number] ACCOUNT: [id number] LOCATION:[facility] : 45 ADMISSION DATE: 04/14/20 PCP: JOLENE FRANCO MD HISTORY AND PHYSICAL EXAMINATION HISTORY OF PRESENT ILLNESS: A 74-year-old gentleman with a known history of coronary artery disease, status post intervention as well as hypertension and hyperlipidemia, was seen postoperatively with difficulty sedation, had some bradyarrhythmias postop as well as some chest pain, underwent Cardiolite stress testing which showed reversibility, being brought to the lab for further evaluation. PAST MEDICAL HISTORY: Includes; 1. Hypertension. 2. Hyperlipidemia. 3. Coronary artery disease as described above. PHYSICAL EXAMINATION: GENERAL: Pleasant gentleman, in no acute distress, appears stated age. HEENT: Normocephalic, atraumatic. NECK: No bruits noted. HEART: Regular. LUNGS: Good excursion. ABDOMEN: Soft, nontender. EXTREMITIES: Pulses 2+. No edema. IMPRESSION: Recurrent angina with significant reversibility, noninvasive testing. PLAN: For angiography, intervention based on above. TRANSINT:[id number] Voice Confirmation ID: [id number] DOCUMENT ID: [id number] IMER GUEVARA MD at 1351 CC: [id number] DICTATION DATE: 04/14/2052 INSIDE SALES AGENT: 04/14/20 1131 [facility] CLI 04/14/20 [place] [id number] [place] [id number]
== END 2020-04-14 12:35 | disposition home or self-care (01) ==
LOC: D.CATH 07:39
PROVIDERS: ATTEND Internal Medicine Interventional Cardiology
DX: I25.119 Atherosclerotic heart disease of native coronary artery with unspecified angina pectoris (principal); E78.5 Hyperlipidemia, unspecified; I10 Essential (primary) hypertension